=== PATIENT | male | born 1970 | race Caucasian/White ===

== ENCOUNTER 2017-08-21 23:18 | Observation (INO) | payer MEDICAID ==
--- NOTE | 2017-08-21 23:31 | ED PDOC ---
Arrival/HPI - General Chief Complaint: Chest Pain Time Seen by Provider: 08/21/17 23:20 Historian: Patient - History of Present Illness Narrative History of Present Illness (Text): 08/21/17 23:31 Fernanda Mcrae is a 47 year old male, whose past medical history includes CAD with 1 coronary stent, ND, CHF, pacemaker/defibrillator, and asthma, who presents to the Emergency department complaining of left-sided chest pain since earlier today with associated dizziness. Patient states he took Aspirin at home earlier today. Patient also reports wheezing, consistent with usual asthma symptoms. Patient denies any fever, chills, nausea, vomiting, diarrhea, urinary symptoms, back pain, neck pain, headache, dizziness, or any other complaints. Symptom Onset: Gradual Symptom Course: Unchanged Activities at Onset: Light Context: Home Past Medical History - Provider Review Nursing Documentation Reviewed: Yes - Infectious Disease Hx of Infectious Diseases: None - Cardiac Hx Hypertension: Yes Hx Internal Defibrillator: Yes Hx Pacemaker: Yes Other/Comment: stent x1 - Pulmonary Hx Respiratory Disorders: No - Psychiatric Hx Substance Use: No - Surgical History Hx Coronary Stent: Yes - Anesthesia Hx Anesthesia: No Family/Social History - Physician Review Nursing Documentation Reviewed: Yes Family/Social History: Unknown Family HX Smoking Status: Smoker Currrent Status Unknown Hx Alcohol Use: Yes Frequency of alcohol use: Socially Hx Substance Use: No Allergies/Home Meds Allergies/Adverse Reactions: Allergies pantoprazole [From Protonix] Adverse Reaction (Unknown, Verified 08/21/17 23:31) SWELLING Home Medications: Home Meds Medication Instructions Recorded Confirmed Aspirin [Aspirin Chewable] 81 mg PO DAILY 08/21/17 08/21/17 Atorvastatin [Lipitor] 80 mg PO DAILY 08/21/17 08/21/17 Clopidogrel [Plavix] 75 mg PO DAILY 08/21/17 08/21/17 Metoprolol Tartrate [Lopressor] 25 mg PO DAILY 08/21/17 08/21/17 Review of Systems - Physician Review All systems were reviewed & negative as marked: Yes - Review of Systems Constitutional: Normal. absent: Fevers Eyes: Normal ENT: Normal Respiratory: Wheezing Cardiovascular: Chest Pain Gastrointestinal: Normal. absent: Abdominal Pain, Diarrhea, Nausea, Vomiting Genitourinary Male: Normal. absent: Dysuria, Frequency, Hematuria, Urinary Output Changes Musculoskeletal: Normal. absent: Back Pain, Neck Pain Skin: Normal. absent: Rash Neurological: Normal. absent: Headache, Dizziness Endocrine: Normal Hemo/Lymphatic: Normal Psychiatric: Normal Physical Exam Vital Signs Reviewed: Yes Vital Signs Temp Pulse Resp BP Pulse Ox 08/21/17 23:50 99 H 141/71 08/21/17 23:33 98.3 F 105 H 17 141/71 100 Temperature: Afebrile Blood Pressure: Normal Pulse: Regular Respiratory Rate: Normal Appearance: Positive for: Well-Appearing, Non-Toxic, Comfortable Pain Distress: None Mental Status: Positive for: Alert and Oriented X 3 - Systems Exam Head: Present: Atraumatic, Normocephalic Pupils: Present: PERRL Extroacular Muscles: Present: EOMI Conjunctiva: Present: Normal Mouth: Present: Moist Mucous Membranes Neck: Present: Normal Range of Motion Respiratory/Chest: Present: Wheezes. No: Respiratory Distress, Accessory Muscle Use Cardiovascular: Present: Regular Rate and Rhythm, Normal S1, S2. No: Murmurs Abdomen: No: Tenderness, Distention, Peritoneal Signs Back: Present: Normal Inspection Upper Extremity: Present: Normal Inspection. No: Cyanosis, Edema Lower Extremity: Present: Normal Inspection. No: Edema Neurological: Present: GCS=15, CN II-XII Intact, Speech Normal Skin: Present: Warm, Dry, Normal Color. No: Rashes Psychiatric: Present: Alert, Oriented x 3, Normal Insight, Normal Concentration Medical Decision Making ED Course and Treatment: 08/21/17 23:31 Impression: 47 year old male complaining of chest pain, dizziness, and wheezing. Plan: -- EKG -- Chest X-ray -- Labs, cardiac enzymes, BNP -- Aspirin -- Duoneb -- Lopressor -- Nitroglycerin -- Dilaudid -- Reassess and disposition Progress Notes: Reviewed EKG, NSR at 98 bpm. LAHB. Anterolateral infarct, age undetermined. 08/22/17 00:30 Chest X-ray reviewed, shows no acute processes. 08/22/17 01:[address] Meija, who is aware and agrees with plan. Accepts pt in to hospitalist service. Pt will go to Telemetry observation for chest pain. anesthesia resident notified. - Lab Interpretations Lab Results: 08/21/17 23:42 08/21/17 23:42 Lab Results 08/21/17 23:42: WBC 8.6, RBC 4.65, Hgb 11.1 L, Hct 34.5 L, MCV 74.2 L, MCH 23.9 L, MCHC 32.2, RDW 14.6 H, Plt Count 288, MPV 9.4 04 23:42: Sodium 141, Potassium 4.0, Chloride 102, Carbon Dioxide 27, Anion Gap 16, BUN 20, Creatinine 0.9, Est GFR ( Amer) > 60, Est GFR (Non- Af Amer) > 60, Random Glucose 110, Calcium 8.7, Total Bilirubin 0.2, AST 28, ALT 28, Alkaline Phosphatase 73, Lactate Dehydrogenase 410, Total Creatine Kinase 51, Troponin I < 0.01, NT-Pro-B Natriuret Pep 127, Total Protein 7.1, Albumin 4.3, Globulin 2.8, Albumin/Globulin Ratio 1.5 08/21/17 23:42: PT 11.2, INR 0.98, APTT 27.7 - RAD Interpretation Radiology Orders: 08/21/17 23:33 CHEST PORTABLE [RAD] Stat Cut Out And Marking Machine Operator: ED Physician - EKG Interpretation Interpreted by ED Physician: Yes Type: 12 lead EKG - Medication Orders Current Medication Orders: Discontinued Medications Albuterol/Ipratropium (Duoneb 3 Mg/0.5 Mg (3 Ml) Ud) 3 ml IH ONCE STA Stop: 08/21/17 23:40 Last Admin: 08/21/17 23:50 Dose: 3 ml Aspirin (Aspirin) 325 mg PO ONCE STA Stop: 08/21/17 23:41 Last Admin: 08/21/17 23:50 Dose: 325 mg Hydromorphone HCl (Dilaudid) 0.5 mg IVP STAT STA Stop: 08/21/17 23:41 Last Admin: 08/21/17 23:50 Dose: 0.5 mg MAR Pain Assessment Document 08/21/17 23:50 IT (Rec: 08/21/17 23:50 IT [id number]) Pain Reassessment Is this a pain reassessment? No Sleep Is patient sleeping during reassessment? No Presence of Pain Presence of Pain Yes Pain Scale Used Pain Scale Used Numeric IVP Administration Document 08/21/17 23:50 IT (Rec: 08/21/17 23:50 IT [id number]) Charges for Administration # of IVP Administrations 1 Metoprolol Tartrate (Lopressor) 25 mg PO ONCE STA Stop: 08/21/17 23:41 Last Admin: 08/21/17 23:50 Dose: 25 mg MAR Pulse and Blood Pressure Document 08/21/17 23:50 IT (Rec: 08/21/17 23:50 IT [id number]) Pulse Pulse Rate (60-90 beats/min) 99 Blood Pressure Blood Pressure (100/60-150/90 mm Hg) 141/71 Nitroglycerin (Nitro-Bid 2% Oint) 1 ea TOP ONCE STA Stop: 08/21/17 23:41 Last Admin: 08/21/17 23:49 Dose: 1 ea - Scribe Statement The provider has reviewed the documentation as recorded by the Jono Draper Provider Scribe Attestation: All medical record entries made by the Scribe were at my direction and personally dictated by me. I have reviewed the chart and agree that the record accurately reflects my personal performance of the history, physical exam, medical decision making, and the department course for this patient. I have also personally directed, reviewed, and agree with the discharge instructions and disposition. Disposition/Present on Arrival - Present on Arrival Any Indicators Present on Arrival: No History of DVT/PE: No History of Uncontrolled Diabetes: No Urinary Catheter: No History of Decub. Ulcer: No History Surgical Site Infection Following: None - Disposition Have Diagnosis and Disposition been Completed?: Yes Diagnosis: Chest pain, Asthma Disposition: HOSPITALIZED Disposition Time: 01:50 Condition: STABLE Discharge Instructions (ExitCare): Chest Pain (ED) Forms: [employer] (Dutch)
[2017-08-21] MEDS ORDERED: Albuterol-Ipratrop 3 mg / 0.5 (3 ml) UD IH STA (23:39)
[2017-08-21] MEDS ORDERED: Nitroglycerin 2% Ointment Foilpak UD TOP STA (23:40)
[2017-08-21] MEDS ORDERED: HYDROmorphone 0.5 mg/0.5 ml ISec IVP STA (23:40)
[2017-08-22 00:19] LABS: HEMOGLOBIN 11.1 g/dL (14.0-18.0); MEAN CELL VOLUME 74.2 fl (80.0-105.0); MEAN CORPUSCULAR HEMOGLOBIN 23.9 pg (25.0-35.0); MEAN CORPUSCULAR HGB CONC 32.2 g/dl (31.0-37.0); MEAN PLATELET VOLUME 9.4 fl (7.0-11.0); RBC 4.65 10^6/uL (3.5-6.1); RED CELL DISTRIBUTION WIDTH 14.6 % (11.5-14.5); WHITE BLOOD COUNT 8.6 10^3/ul (4.5-11.0)
[2017-08-22 00:27] LABS: INR 0.98 (0.93-1.08); PARTIAL THROMBOPLASTIN TIME 27.7 Seconds (25.1-36.5); PROTHROMBIN TIME 11.2 SECONDS (9.4-12.5)
[2017-08-22 00:29] LABS: ALB/GLOB RATIO 1.5 (1.1-1.8); ALBUMIN 4.3 g/dL (3.0-4.8); ALT/SGPT 28 U/L (7-56); AST/SGOT 28 U/L (17-59); BLOOD UREA NITROGEN 20 mg/dL (7-21); CALCIUM 8.7 mg/dL (8.4-10.5); GFR AFRICAN-AMERICAN > 60; GFR NON-AFRICAN AMERICAN > 60
[2017-08-22 00:41] LABS: B-TYPE NATRIURETIC PEPTIDE 127 pg/mL (0-450); TROPONIN I < 0.01 ng/mL
--- NOTE | 2017-08-22 02:02 | CP.PCM.HP ---
<Mariella Siddiqi - Last Filed: 08/22/17 02:55> History of Present Illness - History of Present Illness History of Present Illness: This patient is a 47 year old male with a PMHx of CAD w/ Stent placement, UT, CHF, pacemaker/Defibrillator, and asthma/COPD who presents complaining of chest pain that started around 6:00PM on Tuesday. The chest pain started as he was rising from a seated to standing position. Patient describes the pain as constant and sharp, rates it a 6/10 in severity, and states it radiates to his left shoulder. He took 2 81mg aspirin at home to relieve the pain which slightly helped. Associated with his chest pain is mild dizziness. Patient also complains of mild SOB but attributes it to his asthma. Patient was admitted to [facility] for chest pain 2 weeks in which he had an ECHO done. He is unsure of what the report read. ROS POSITIVES: Chest pain, SOB, Dizziness NEGATIVES: Headache, Fever, chills, abdominal pain, N/V/D, constipation, urinary symptoms. PMHx: CAD w/ Stent placement, UT, CHF, pacemaker/Defibrillator, and asthma/COPD PSHx: Stent placement. Allergies: Protonix SocialHx: 2-3 cigarettes a day for 2 years (Quit April 2017), Drinks Alcohol occasionally, Denies illicit drug use. Works for [employer] at [employer]: 2 weeks ago at [facility] for Chest Pain FamHx: Mom-Heart Disease Meds: Reviewed PMD: Dr. Amauri Retana Corporate Buyer: Dr. Whitten Present on Admission - Present on Admission Any Indicators Present on Admission: No Review of Systems - Review of Systems All systems: reviewed and no additional remarkable complaints except (As per HPI ) Review of Systems: As per HPI Past Patient History - Infectious Disease Hx of Infectious Diseases: None - Past Social History Smoking Status: Smoker Currrent Status Unknown - CARDIAC Hx Hypertension: Yes Hx Internal Defibrillator: Yes Hx Pacemaker: Yes Other/Comment: stent x1 - PULMONARY Hx Respiratory Disorders: No - PSYCHIATRIC Hx Substance Use: No - SURGICAL HISTORY Hx Coronary Stent: Yes - ANESTHESIA Hx Anesthesia: No Meds Allergies/Adverse Reactions: Allergies Allergy/AdvReac Type Severity Reaction Status Date / Time pantoprazole [From Protonix] AdvReac Unknown SWELLING Verified 08/21/17 23:31 Physical Exam - Constitutional Appears: Non-toxic, No Acute Distress - Head Exam Head Exam: ATRAUMATIC, NORMAL INSPECTION, NORMOCEPHALIC - Eye Exam Eye Exam: EOMI, Normal appearance - ENT Exam ENT Exam: Mucous Membranes Moist - Respiratory Exam Respiratory Exam: Wheezes. absent: Accessory Muscle Use, Clear to Auscultation Bilateral, Rales - Cardiovascular Exam Cardiovascular Exam: RRR, +S1, +S2. absent: JVD - GI/Abdominal Exam GI & Abdominal Exam: Normal Bowel Sounds, Soft. absent: Tenderness - Extremities Exam Extremities exam: Positive for: normal capillary refill. Negative for: pedal edema - Neurological Exam Neurological exam: Alert, Oriented x3 - Psychiatric Exam Psychiatric exam: Normal Affect, Normal Mood - Skin Skin Exam: Dry, Intact, Normal Color, Warm Results - Vital Signs Recent Vital Signs: Last Vital Signs Temp 98.3 F 08/21/17 23:33 Pulse 99 H 08/21/17 23:50 Resp 17 08/21/17 23:33 BP 141/71 08/21/17 23:50 Pulse Ox 100 08/21/17 23:33 - Labs Result Diagrams: 08/21/17 23:42 08/21/17 23:42 Labs: Laboratory Results - last 24 hr 08/21/17 08/21/17 08/21/17 23:42 23:42 23:42 WBC 8.6 RBC 4.65 Hgb 11.1 L Hct 34.5 L MCV 74.2 L MCH 23.9 L MCHC 32.2 RDW 14.6 H Plt Count 288 MPV 9.4 PT 11.2 INR 0.98 APTT 27.7 Sodium 141 Potassium 4.0 Chloride 102 Carbon Dioxide 27 Anion Gap 16 BUN 20 Creatinine 0.9 Est GFR ( Amer) > 60 Est GFR (Non-Af Amer) > 60 Random Glucose 110 Calcium 8.7 Total Bilirubin 0.2 AST 28 ALT 28 Alkaline Phosphatase 73 Lactate Dehydrogenase 410 Total Creatine Kinase 51 Troponin I < 0.01 NT-Pro-B Natriuret Pep 127 Total Protein 7.1 Albumin 4.3 Globulin 2.8 Albumin/Globulin Ratio 1.5 Assessment & Plan - Assessment and Plan (Free Text) Assessment: 47 year old male with a PMHx of CAD w/ Stent placement, UT, CHF, pacemaker/ Defibrillator, and asthma/COPD admitted for evaluation and treatment of chest pain. Plan: Chest Pain R/O ACS. CXR: No Acute Disease EKG: NSR with no acute ST/T wave changes BNP - Within normal limits Trop #1 - NEGATIVE ED: ASA 325, Nitroglycerin, Diluaded 0.5 Serial Troponins Serial EKG's Cardiology Consult Asthma/COPD Exacerbaton Solumedrol 125 in ED DuoNeb in ED PRN Xopenex Solumedrol 40 Q12H Hx of CAD ASA/Plavix Lipitor 80 Hx of CHF Metoprolol 25 mg PO Daily Patient had ECHO 2 weeks ago at [facility]. He is unsure of the results. Proph No indication for GI proph Lovenox Patient seen and discussed with Attending (Dr. Mejia) Mariella Siddiqi, PGY-1 <Adelaide Mejia - Last Filed: 08/22/17 03:55> Results - Vital Signs Recent Vital Signs: Last Vital Signs Temp 98.3 F 08/21/17 23:33 Pulse 99 H 08/21/17 23:50 Resp 17 08/21/17 23:33 BP 141/71 08/21/17 23:50 Pulse Ox 100 08/21/17 23:33 - Labs Result Diagrams: 08/21/17 23:42 08/21/17 23:42 Attending/Attestation - Attestation I have personally seen and examined this patient.: Yes I have fully participated in the care of the patient.: Yes I have reviewed all pertinent clinical information: Yes Notes (Text): 08/22/17 03:53 Patient was seen when he was in bed # 16 in the ER. Medical record was reviewed. Agree with history, physical examination, assessment and plan.
[2017-08-22] MEDS ORDERED: Levalbuterol 0.63 MG/3 ML Inhal Soln UD IH PRN (02:56)
[2017-08-22] MEDS ORDERED: Pantoprazole 40 mg EC Tab PO SCH (06:00)
[2017-08-22 07:01] LABS: EOS # 0.2 (0.0-0.7); EOS % 2.1 % (1.5-5.0); GRAN # 6.82 (1.4-6.5); GRAN % 88.6 % (50.0-68.0); HEMOGLOBIN 11.1 g/dL (14.0-18.0); LYMPH # 0.6 (1.2-3.4); LYMPH % 7.3 % (22.0-35.0); MEAN CELL VOLUME 74.3 fl (80.0-105.0); MEAN CORPUSCULAR HGB CONC 32.3 g/dl (31.0-37.0); MEAN PLATELET VOLUME 9.3 fl (7.0-11.0); MONO # 0.2 (0.1-0.6); RBC 4.63 10^6/uL (3.5-6.1); RED CELL DISTRIBUTION WIDTH 14.8 % (11.5-14.5); WHITE BLOOD COUNT 7.7 10^3/ul (4.5-11.0)
[2017-08-22 07:29] LABS: TROPONIN I 0.02 ng/mL
[2017-08-22 07:34] LABS: ALB/GLOB RATIO 1.4 (1.1-1.8); ALBUMIN 4.1 g/dL (3.0-4.8); ALT/SGPT 22 U/L (7-56); AST/SGOT 27 U/L (17-59); BLOOD UREA NITROGEN 19 mg/dL (7-21); CALCIUM 9.1 mg/dL (8.4-10.5); GFR AFRICAN-AMERICAN > 60; GFR NON-AFRICAN AMERICAN > 60
--- NOTE | 2017-08-22 09:24 | RAD ---
HISTORY: pain COMPARISON: No prior. FINDINGS: LUNGS: No active pulmonary disease. PLEURA: No significant pleural effusion identified, no pneumothorax apparent. CARDIOVASCULAR: Normal. OSSEOUS STRUCTURES: No significant abnormalities. VISUALIZED UPPER ABDOMEN: Normal. OTHER FINDINGS: Single lead pacemaker IMPRESSION: No active disease.
[2017-08-22] MEDS: Enoxaparin 40 mg Syringe SC SCH (10:08)
[2017-08-22] MEDS: MethylPREDNISolone 40 mg Vial IVP SCH ×2 (10:09→22:05)
--- NOTE | 2017-08-22 11:00 | CARD ---
APPROVED REPORT EKG Measurement Heart [id number] CO 178P15 [id number] <Conclusion> Normal sinus rhythm Left anterior fascicular block Anterolateral infarct, age undetermined Abnormal ECG
--- NOTE | 2017-08-22 16:21 | CARD ---
APPROVED REPORT EKG Measurement Heart [id number] NC 158P35 [id number] <Conclusion> Normal sinus rhythm Possible Left atrial enlargement Left anterior fascicular block Anterolateral infarct, age undetermined Abnormal ECG
--- NOTE | 2017-08-22 16:41 | CARD ---
APPROVED REPORT EKG Measurement Heart [id number] 170P35 [id number] <Conclusion> Normal sinus rhythm Left anterior fascicular block Anterolateral infarct, age undetermined Abnormal ECG
--- NOTE | 2017-08-22 22:43 | CON ---
DATE: CARDIOLOGY CONSULTATION REASON FOR CONSULTATION: Chest pain. HISTORY OF PRESENT ILLNESS: The patient is a 47-year-old male who has a history of cardiomyopathy, history of coronary stenting, the last stent was in 2014; history of ICD placement that was placed in 2016. The patient follows by a patient services manager, by the name of Dr. Whitten at [facility] in [facility]. He presents because of chest pain which is tightness, nonradiating. The patient is on daily Plavix and aspirin therapy at home and claims to be compliant with his medication. At this time, the patient denies any chest pain. SOCIAL HISTORY: Patient is a smoker, EtOH abuser. 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 REVIEW OF SYSTEMS: No fever or chills. No vomiting or diarrhea. PHYSICAL EXAMINATION: GENERAL: Patient is a middle-aged male who does not appear to be in any acute distress. VITAL SIGNS: Blood pressure 126/90, heart rate 92, temperature 97.5, respirations 16. HEENT: Normocephalic. CHEST: Bibasilar coarse crepitations. HEART: S1 and S2 regular. ABDOMEN: Soft. EXTREMITIES: Trace leg edema. LABORATORY DATA: Hemoglobin and hematocrit 11.1 and 34.4, white count and platelet count are within normal limit. SMA-7 is within normal limits except for glucose of 137 and creatine of 0.7. Two sets of troponin are 0.01 and 0.02. Chest x-ray revealed cardiomegaly, mild CHF, and an ICD, single chamber lead. ASSESSMENT: 1. Exacerbation of congestive heart failure. 2. Ischemic cardiomyopathy. The most recent echocardiographic study performed in June of last year revealed mildly elevated left ventricle with severe apical thinning and apical akinesis, ejection fraction was estimated at 30% to 35%. 3. History of coronary artery disease status post coronary stent in 2014. RECOMMENDATIONS: Continue current aspirin 81 mg once a day, Lipitor 80 mg once a day, Lopressor 25 mg once a day, Lovenox 20 mg subcutaneously once a day, Plavix 75 mg once a day, Solu-Medrol 40 mg intravenously every 12 hours, Xopenex inhaler, start Aldactone at 25 mg once a day, Cozaar at 25 mg once a day, Lasix 40 mg intravenously twice a day with K-Dur 20 mEq once a day. Eros Butt MD [facility] # [id number]
[2017-08-23 06:22] LABS: GRAN # 13.18 (1.4-6.5); GRAN % 92.7 % (50.0-68.0); HEMOGLOBIN 11.7 g/dL (14.0-18.0); LYMPH # 0.6 (1.2-3.4); LYMPH % 4.3 % (22.0-35.0); MEAN CELL VOLUME 73.4 fl (80.0-105.0); MEAN CORPUSCULAR HEMOGLOBIN 23.9 pg (25.0-35.0); MEAN CORPUSCULAR HGB CONC 32.6 g/dl (31.0-37.0); MEAN PLATELET VOLUME 9.6 fl (7.0-11.0); MONO # 0.4 (0.1-0.6); PLATELET COUNT 292 10^3/uL (120.0-450.0); RBC 4.89 10^6/uL (3.5-6.1); RED CELL DISTRIBUTION WIDTH 14.3 % (11.5-14.5); WHITE BLOOD COUNT 14.2 10^3/ul (4.5-11.0)
[2017-08-23 06:35] VITALS: O2SAT 99
[2017-08-23 06:42] LABS: ALB/GLOB RATIO 1.4 (1.1-1.8); ALBUMIN 4.5 g/dL (3.0-4.8); ALT/SGPT 23 U/L (7-56); AST/SGOT 34 U/L (17-59); BLOOD UREA NITROGEN 21 mg/dL (7-21); CALCIUM 9.7 mg/dL (8.4-10.5); GFR AFRICAN-AMERICAN > 60; GFR NON-AFRICAN AMERICAN > 60
[2017-08-23 09:04] LABS: LYMPHOCYTE 2 % (22.0-35.0); MONOCYTE 3 % (1.0-6.0); NEUTROPHIL 95 % (50.0-70.0)
[2017-08-23] MEDS ORDERED: Potassium Chloride 20 mEq ER Tab PO SCH (10:00)
[2017-08-23] MEDS: Enoxaparin 40 mg Syringe SC SCH (10:11)
[2017-08-23] MEDS: MethylPREDNISolone 40 mg Vial IVP SCH (10:12)
--- NOTE | 2017-08-23 11:12 | CP.PCM.DIS ---
<Titi Rowley - Last Filed: 08/23/17 15:31> Provider - Provider Date of Admission: 08/22/17 01:50 Attending physician: Valentin Rockwell MD Time Spent in preparation of Discharge (in minutes): 45 Diagnosis - Discharge Diagnosis (1) Chest pain Status: Resolved Priority: Medium (2) Myocardial infarct Status: Resolved Priority: Medium (3) Congestive heart failure Status: Chronic Priority: Medium (4) History of implantable cardioverter-defibrillator (ICD) placement Status: Chronic Priority: Medium (5) Asthma Status: Chronic Priority: Medium Hospital Course - Lab Results Lab Results: Most Recent Lab Values WBC 14.2 10^3/ul (4.5-11.0) H D 08/23/17 05:40 RBC 4.89 10^6/uL (3.5-6.1) 08/23/17 05:40 Hgb 11.7 g/dL (14.0-18.0) L 08/23/17 05:40 Hct 35.9 % (42.0-52.0) L 08/23/17 05:40 MCV 73.4 fl (80.0-105.0) L 08/23/17 05:40 MCH 23.9 pg (25.0-35.0) L 08/23/17 05:40 MCHC 32.6 g/dl (31.0-37.0) 08/23/17 05:40 RDW 14.3 % (11.5-14.5) 08/23/17 05:40 Plt Count 292 10^3/uL (120.0-450.0) 08/23/17 05:40 MPV 9.6 fl (7.0-11.0) 08/23/17 05:40 Gran % 92.7 % (50.0-68.0) H 08/23/17 05:40 Lymph % (Auto) 4.3 % (22.0-35.0) L 08/23/17 05:40 [place] % (Auto) 3.0 % (1.0-6.0) 08/23/17 05:40 Eos % (Auto) 0.0 % (1.5-5.0) L 08/23/17 05:40 Baso % (Auto) 0.0 % (0.0-3.0) 08/23/17 05:40 Gran # 13.18 (1.4-6.5) H 08/23/17 05:40 Lymph # (Auto) 0.6 (1.2-3.4) L 08/23/17 05:40 [place] # (Auto) 0.4 (0.1-0.6) 08/23/17 05:40 Eos # (Auto) 0.0 (0.0-0.7) 08/23/17 05:40 Baso # (Auto) 0.00 K/mm3 (0.0-2.0) 08/23/17 05:40 Neutrophils % (Manual) 95 % (50.0-70.0) H 08/23/17 05:40 Lymphocytes % (Manual) 2 % (22.0-35.0) L 08/23/17 05:40 Monocytes % (Manual) 3 % (1.0-6.0) 08/23/17 05:40 PT 11.2 SECONDS (9.4-12.5) 08/21/17 23:42 INR 0.98 (0.93-1.08) 08/21/17 23:42 APTT 27.7 Seconds (25.1-36.5) 08/21/17 23:42 Sodium 141 mmol/L (132-148) 08/23/17 05:40 Potassium 3.7 mmol/L (3.6-5.0) 08/23/17 05:40 Chloride 99 mmol/L (98-107) 08/23/17 05:40 Carbon Dioxide 26 mmol/L (21-33) 08/23/17 05:40 Anion Gap 19 (10-20) 08/23/17 05:40 BUN 21 mg/dL (7-21) 08/23/17 05:40 Creatinine 0.7 mg/dl (0.8-1.5) L 08/23/17 05:40 Est GFR ( Amer) > 60 08/23/17 05:40 Est GFR (Non-Af Amer) > 60 08/23/17 05:40 Random Glucose 150 mg/dL (70-110) H 08/23/17 05:40 Calcium 9.7 mg/dL (8.4-10.5) 08/23/17 05:40 Total Bilirubin 0.4 mg/dL (0.2-1.3) 08/23/17 05:40 AST 34 U/L (17-59) 08/23/17 05:40 ALT 23 U/L (7-56) 08/23/17 05:40 Alkaline Phosphatase 74 U/L (38-126) 08/23/17 05:40 Lactate Dehydrogenase 410 U/L (333-699) 08/21/17 23:42 Total Creatine Kinase 51 U/L (35-230) 08/21/17 23:42 Troponin I 0.02 ng/mL 08/22/17 11:13 NT-Pro-B Natriuret Pep 127 pg/mL (0-450) 08/21/17 23:42 Total Protein 7.7 g/dL (5.8-8.3) 08/23/17 05:40 Albumin 4.5 g/dL (3.0-4.8) 08/23/17 05:40 Globulin 3.2 gm/dL 08/23/17 05:40 Albumin/Globulin Ratio 1.4 (1.1-1.8) 08/23/17 05:40 - Hospital Course Hospital Course: Patient is a 47 year old male with a PMHx of CAD w/ Stent placement, SD, CHF, pacemaker/Defibrillator, and asthma/COPD who was admitted for evaluation and treatment of chest pain. With the use of physical examinations, lab work, and imaging the patient was diagnosed with and treated for chest pain (acs was ruled out) musculoskeletal in nature along with the patients chronic medical conditions. During their hospital stay the patient was seen by cardiology and their recommendations were both appreciated and utilized in the care for this patient. Cardiology started the patient on lasix and aldactone. During their hospital stay the patient underwent multiple EKGs and echocardiogram which were reviewed, appreciated, and utilized in the management of the patients clinical course. Patient was treated with aspirin, plavix, lovenox, antihypertensive medications amongst other empiric/therapeutic medications. At this time the patient is medically stable for discharge. Patient understands and appreciates discharge plan. Patient instructed to follow up with primary care physicians and referrals within three to five days from discharge. Furthermore, the patient is instructed to take medications as prescribed and to return to emergency room for evaluation of intractable headache, fever, chills, dizziness, chest pain, shortness of breath, abdominal pain, nausea, vomiting, diarrhea, constipation, and urinary symptoms. This is a brief summary of the patients hospital course. Please see patient chart for full details. Discharge Exam - Head Exam Head Exam: ATRAUMATIC, NORMAL INSPECTION, NORMOCEPHALIC - Additional Findings Additional findings: - Constitutional Appears: Non-toxic, No Acute Distress - Head Exam Head Exam: ATRAUMATIC, NORMAL INSPECTION, NORMOCEPHALIC - Eye Exam Eye Exam: EOMI, Normal appearance - ENT Exam ENT Exam: Mucous Membranes Moist - Respiratory Exam Respiratory Exam: CTA bilaterally. absent: Accessory Muscle Use, Clear to Auscultation Bilateral, Rales - Cardiovascular Exam Cardiovascular Exam: RRR, +S1, +S2. lateral chest wall tender to touch, absent : JVD - GI/Abdominal Exam GI & Abdominal Exam: Normal Bowel Sounds, Soft. absent: Tenderness - Extremities Exam Extremities exam: Positive for: normal capillary refill. Negative for: pedal edema - Neurological Exam Neurological exam: Alert, Oriented x3 - Psychiatric Exam Psychiatric exam: Normal Affect, Normal Mood - Skin Skin Exam: Dry, Intact, Normal Color, Warm Discharge Plan - Discharge Medications Prescriptions: Furosemide [Lasix] 40 mg PO BID #60 tab Losartan [Cozaar] 25 mg PO DAILY 14 Days tab Spironolactone [Aldactone] 25 mg PO DAILY #30 tab - Follow Up Plan Condition: STABLE Disposition: HOME/ ROUTINE Patient education suggested?: Yes Instructions: Heart Failure, Adult, Heart Failure, Adult (DC), Chest Pain (DC) Additional Instructions: Patient Instructions: Take medications as prescribed. Follow up with PMD and referrals within three to five days from discharge. Return to the emergency room for evaluation of intractable headache, fever, chills, dizziness, chest pain, shortness of breath, abdominal pain, nausea, vomiting, diarrhea, constipation, and urinary symptoms. FOLLOW UP WITH YOUR [employer]CH [employer] SUPERVISOR AT [facility] WITHIN 1 WEEK REGARDING WHETHER OR NOT TO BE ON ANTICOAGULATION. Referrals: Eros Butt MD [Staff Provider] - <Valentin Rockwell - Last Filed: 08/23/17 17:29> Provider - Provider Date of Admission: 08/22/17 01:50 Attending physician: Valentin Rockwell MD Hospital Course - Lab Results Lab Results: Most Recent Lab Values WBC 14.2 10^3/ul (4.5-11.0) H D 04/24/18 05:40 RBC 4.89 10^6/uL (3.5-6.1) 08/23/17 05:40 Hgb 11.7 g/dL (14.0-18.0) L 08/23/17 05:40 Hct 35.9 % (42.0-52.0) L 08/23/17 05:40 MCV 73.4 fl (80.0-105.0) L 08/23/17 05:40 MCH 23.9 pg (25.0-35.0) L 08/23/17 05:40 MCHC 32.6 g/dl (31.0-37.0) 08/23/17 05:40 RDW 14.3 % (11.5-14.5) 08/23/17 05:40 Plt Count 292 10^3/uL (120.0-450.0) 08/23/17 05:40 MPV 9.6 fl (7.0-11.0) 08/23/17 05:40 Gran % 92.7 % (50.0-68.0) H 08/23/17 05:40 Lymph % (Auto) 4.3 % (22.0-35.0) L 08/23/17 05:40 [place] % (Auto) 3.0 % (1.0-6.0) 08/23/17 05:40 Eos % (Auto) 0.0 % (1.5-5.0) L 08/23/17 05:40 Baso % (Auto) 0.0 % (0.0-3.0) 08/23/17 05:40 Gran # 13.18 (1.4-6.5) H 08/23/17 05:40 Lymph # (Auto) 0.6 (1.2-3.4) L 08/23/17 05:40 [place] # (Auto) 0.4 (0.1-0.6) 08/23/17 05:40 Eos # (Auto) 0.0 (0.0-0.7) 08/23/17 05:40 Baso # (Auto) 0.00 K/mm3 (0.0-2.0) 08/23/17 05:40 Neutrophils % (Manual) 95 % (50.0-70.0) H 08/23/17 05:40 Lymphocytes % (Manual) 2 % (22.0-35.0) L 08/23/17 05:40 Monocytes % (Manual) 3 % (1.0-6.0) 08/23/17 05:40 PT 11.2 SECONDS (9.4-12.5) 08/21/17 23:42 INR 0.98 (0.93-1.08) 08/21/17 23:42 APTT 27.7 Seconds (25.1-36.5) 08/21/17 23:42 Sodium 141 mmol/L (132-148) 08/23/17 05:40 Potassium 3.7 mmol/L (3.6-5.0) 08/23/17 05:40 Chloride 99 mmol/L (98-107) 08/23/17 05:40 Carbon Dioxide 26 mmol/L (21-33) 08/23/17 05:40 Anion Gap 19 (10-20) 08/23/17 05:40 BUN 21 mg/dL (7-21) 08/23/17 05:40 Creatinine 0.7 mg/dl (0.8-1.5) L 08/23/17 05:40 Est GFR ( Amer) > 60 08/23/17 05:40 Est GFR (Non-Af Amer) > 60 08/23/17 05:40 Random Glucose 150 mg/dL (70-110) H 08/23/17 05:40 Calcium 9.7 mg/dL (8.4-10.5) 08/23/17 05:40 Total Bilirubin 0.4 mg/dL (0.2-1.3) 08/23/17 05:40 AST 34 U/L (17-59) 08/23/17 05:40 ALT 23 U/L (7-56) 08/23/17 05:40 Alkaline Phosphatase 74 U/L (38-126) 08/23/17 05:40 Lactate Dehydrogenase 410 U/L (333-699) 08/21/17 23:42 Total Creatine Kinase 51 U/L (35-230) 08/21/17 23:42 Troponin I 0.02 ng/mL 08/22/17 11:13 NT-Pro-B Natriuret Pep 127 pg/mL (0-450) 08/21/17 23:42 Total Protein 7.7 g/dL (5.8-8.3) 08/23/17 05:40 Albumin 4.5 g/dL (3.0-4.8) 08/23/17 05:40 Globulin 3.2 gm/dL 08/23/17 05:40 Albumin/Globulin Ratio 1.4 (1.1-1.8) 08/23/17 05:40 Attending/Attestation - Attestation I have personally seen and examined this patient.: Yes I have fully participated in the care of the patient.: Yes I have reviewed all pertinent clinical information, including history, physical exam and plan: Yes
[2017-08-23 12:27] VITALS: BP 116/78; PULSE 73; RESP 20; TEMP 98.3
--- NOTE | 2017-08-23 14:55 | PN ---
DATE: SUBJECTIVE: The patient denies any chest pain. His shortness of breath has improved. PHYSICAL EXAMINATION VITAL SIGNS: Blood pressure 116/78, heart rate 73, temperature 98.3, respiration 20. HEENT: Normocephalic. CHEST: Minimal basal rhonchi. HEART: S1 and S2 regular. EXTREMITIES: No edema. LABORATORY DATA: Today's SMA-7 is within normal limit except for glucose of 150 and creatinine 0.7. Today's white count is 14.2, hemoglobin and hematocrit 11.7 and 35.9, platelet count 292,000. ASSESSMENT: 1. Ischemic cardiomyopathy. 2. History of coronary artery disease, status post coronary artery stenting in 2014. 3. Ethyl alcohol abuse. RECOMMENDATIONS: Continue current Aldactone, aspirin, Cozaar, K-Dur, Lasix, Lipitor, Lopressor, Plavix, and subcutaneous Lovenox, Coumadin therapy is indicated; however, it has to be cleared by the patient's outpatient services director, Dr. Whitten at [facility] because of compliance issues and EtOH abuse. Eros Butt MD
--- NOTE | 2017-08-24 19:19 | CARD ---
APPROVED REPORT EXAM: Two-dimensional and M-mode echocardiogram with Doppler and color Doppler. INDICATION 2D DIMENSIONS Left Atrium (2D)2.5 (1.6-4.0cm)IVSd1.1 (0.7-1.1cm) LVDd5.4 (3.9-5.9cm)PWd1.1 (0.7-1.1cm) LVDs4.5 (2.5-4.0cm)FS (%) 16.5 % LVEF (%)34.1 (>50%) M-Mode DIMENSIONS Aortic Root3.10 (2.2-3.7cm)Aortic Cusp Exc.1.50 (1.5-2.0cm) Aortic Valve AoV Peak Atxmqdgn419.0cm/Zev Peak GR.8mmHg Mitral Valve MV E Yqowqlhp12.5cm/sMV A Utukfprb41.9cm/sE/A ratio0.9 TDI Lateral E' Peak V10.30cm/sMedial E' Peak V6.53cm/sE/Lateral E'7.4 E/Medial E'11.7 Tricuspid Valve TR Peak Mhdoifrb039sv/sRAP XAIBZBIS76wuHvXU Peak Gr.18mmHg [id number] LEFT VENTRICLE The Left Ventricle is borderline dilated. There is normal left ventricular wall thickness. The systolic function is moderately to severely impaired.EF-20-25% Regional wall motion abnormalities noted. There is severe hypokinesis in the apical anterior wall. Transmitral Doppler flow pattern is Grade III-reversible restrictive diastolic dysfunction. No left ventricle thrombus noted on this study. There is no ventricular septal defect visualized. There is no left ventricular aneurysm. There is no mass noted in the left ventricle. RIGHT VENTRICLE The right ventricle is normal size. There is normal right ventricular wall thickness. The right ventricular systolic function is normal. ATRIA The left atrium is mildly dilated. The right atrium size is normal. The interatrial septum is intact with no evidence for an atrial septal defect. AORTIC VALVE The aortic valve is thickened but opens well. There is trace aortic regurgitation. There is no aortic valvular stenosis. There is no aortic valvular vegetation. MITRAL VALVE The mitral valve is thickened but opens well. Mitral regurgitation is trace. There is no mitral valve stenosis. There is no evidence of mitral valve prolapse. TRICUSPID VALVE The tricuspid valve leaflets are thickened , but open well. There is trace to mild tricuspid regurgitation.RVSP-28 mmof g. There is no tricuspid valve stenosis. There is no tricuspid valve prolapse or vegetation. PULMONIC VALVE The pulmonary valve is normal in structure. There is trace pulmonic valvular regurgitation. There is no pulmonic valvular stenosis. GREAT VESSELS The aortic root is normal in size. The ascending aorta is normal in size. The pulmonary artery is normal. The IVC is normal in size and collapses >50% with inspiration. PERICARDIAL EFFUSION There is no pleural effusion. There is no pericardial effusion. <Conclusion> The Left Ventricle is borderline dilated. There is normal left ventricular wall thickness. The systolic function is moderately to severely impaired.EF-20-25% There is trace aortic regurgitation. Mitral regurgitation is trace. There is trace to mild tricuspid regurgitation.RVSP-28 mmof g. There is no pulmonic valvular stenosis. The IVC is normal in size and collapses >50% with inspiration. There is no pericardial effusion. No vegetation or thrombus noted.
== END 2017-08-23 16:20 | disposition home or self-care (01) ==
LOC: ED 23:18 → ERH 08-22 01:50 → MERGE 08-22 01:50 → ERH 08-22 14:14 → 2RNO 08-22 15:13
PROVIDERS: ADMIT Internal Medicine; ATTEND Hospitalist
DX: R07.89 Other chest pain (principal); I11.0 Hypertensive heart disease with heart failure; I50.9 Heart failure, unspecified; I25.5 Ischemic cardiomyopathy; I25.10 Atherosclerotic heart disease of native coronary artery without angina pectoris; F10.10 Alcohol abuse, uncomplicated; F17.200 Nicotine dependence, unspecified, uncomplicated; J44.9 Chronic obstructive pulmonary disease, unspecified; Z79.02 Long term (current) use of antithrombotics/antiplatelets; Z79.82 Long term (current) use of aspirin; Z95.0 Presence of cardiac pacemaker; Z95.5 Presence of coronary angioplasty implant and graft; Z95.810 Presence of automatic (implantable) cardiac defibrillator; Z88.8 Allergy status to other drugs, medicaments and biological substances; I25.2 Old myocardial infarction
CPT/HCPCS: 36415; 71045; 80053; 82550; 83615; 83880; 84484; 85025; 85027; 85610; 85730; 93005; 93306; 96372; 96374; 96375; 96376; 99285; G0378; J1170; J1650; J1940; J2920; J2930

== ENCOUNTER 2017-08-24 03:22 | Observation (INO) | payer MEDICAID ==
[2017-08-24 03:26] VITALS: BMI 24.0
--- NOTE | 2017-08-24 03:49 | ED PDOC ---
Arrival/HPI <Sameer Oreilly - Last Filed: 08/24/17 08:58> - General Historian: Patient - History of Present Illness Time/Duration: 24 hours Symptom Onset: Gradual Symptom Course: Unchanged Activities at Onset: Light Context: Home <Eliud Jesus - Last Filed: 08/24/17 19:19> - General Chief Complaint: Chest Pain Time Seen by Provider: 08/24/17 03:28 - History of Present Illness Narrative History of Present Illness (Text): 08/24/17 03:48 Fernanda Mcrae is a 47 year old male, whose past medical history includes CAD with 1 coronary stent, [place], CHF, pacemaker/defibrillator, and asthma, who presents to the Emergency department complaining of chest pain since earlier today with associated dizziness. Patient was recently admitted to the hospital for similar complaints, seen by cardiology, and discharged from the hospital yesterday. Patient states after returning home yesterday, symptoms returned. Patient also reports wheezing/shortness of breath. Patient denies any fever, chills, nausea, vomiting, diarrhea, urinary symptoms, back pain, neck pain, headache, dizziness, or any other complaints. (Eliud Jesus) Past Medical History - Provider Review Nursing Documentation Reviewed: Yes - Infectious Disease Hx of Infectious Diseases: None - Cardiac Hx Cardiac Disorders: Yes Hx Angina: Yes Other/Comment: defibrilater - Pulmonary Hx Respiratory Disorders: No - Neurological Hx Neurological Disorder: No - HEENT Hx HEENT Disorder: No - Renal Hx Renal Disorder: No - Endocrine/Metabolic Hx Endocrine Disorders: No - Hematological/Oncological Hx Blood Disorders: No Hx AIDS: No - Integumentary Hx Dermatological Disorder: No - Musculoskeletal/Rheumatological Hx Musculoskeletal Disorders: No Hx Falls: No - Gastrointestinal Hx Gastrointestinal Disorders: No Hx Vomiting: No - Genitourinary/Gynecological Hx Genitourinary Disorders: No - Psychiatric Hx Psychophysiologic Disorder: No Hx Substance Use: No - Surgical History Other/Comment: Left Lung Biopsy, Cardiac Stent x1 - Anesthesia Hx Anesthesia: Yes Hx Anesthesia Reactions: No Hx Malignant Hyperthermia: No <Eliud Jesus - Last Filed: 08/24/17 19:19> Family/Social History - Physician Review Nursing Documentation Reviewed: Yes Family/Social History: Unknown Family HX Smoking Status: Former Smoker Hx Alcohol Use: No Hx Substance Use: No <Eliud Jesus - Last Filed: 08/24/17 19:19> Allergies/Home Meds <Sameer Oreilly - Last Filed: 08/24/17 08:58> <Eliud Jesus - Last Filed: 08/24/17 19:19> Allergies/Adverse Reactions: Allergies pantoprazole sodium [From Protonix] Allergy (Verified 07/19/16 21:37) RASH pantoprazole [From Protonix] Adverse Reaction (Unknown, Verified 08/21/17 23:31) SWELLING Home Medications: Home Meds Medication Instructions Recorded Confirmed Aspirin [Aspirin Chewable] 81 mg PO DAILY 08/21/17 08/24/17 Atorvastatin [Lipitor] 80 mg PO DAILY 08/21/17 08/24/17 Clopidogrel [Plavix] 75 mg PO DAILY 08/21/17 08/24/17 Metoprolol Tartrate [Lopressor] 25 mg PO DAILY 08/21/17 08/24/17 Review of Systems - Physician Review All systems were reviewed & negative as marked: Yes - Review of Systems Constitutional: Normal. absent: Fevers Eyes: Normal ENT: Normal Respiratory: SOB, Wheezing Cardiovascular: Chest Pain Gastrointestinal: Normal. absent: Abdominal Pain, Diarrhea, Nausea, Vomiting Genitourinary Male: Normal. absent: Dysuria, Frequency, Hematuria Musculoskeletal: Normal. absent: Back Pain, Neck Pain Skin: Normal. absent: Rash Neurological: Dizziness. absent: Headache Endocrine: Normal Hemo/Lymphatic: Normal Psychiatric: Normal <Eliud Jesus - Last Filed: 08/24/17 19:19> Physical Exam Vital Signs Reviewed: Yes Temperature: Afebrile Blood Pressure: Normal Pulse: Regular Respiratory Rate: Normal Appearance: Positive for: Well-Appearing, Non-Toxic, Comfortable Pain Distress: None Mental Status: Positive for: Alert and Oriented X 3 - Systems Exam Head: Present: Atraumatic, Normocephalic Pupils: Present: PERRL Extroacular Muscles: Present: EOMI Conjunctiva: Present: Normal Mouth: Present: Moist Mucous Membranes Neck: Present: Normal Range of Motion Respiratory/Chest: Present: Clear to Auscultation, Good Air Exchange. No: Respiratory Distress, Accessory Muscle Use Cardiovascular: Present: Regular Rate and Rhythm, Normal S1, S2. No: Murmurs Abdomen: No: Tenderness, Distention, Peritoneal Signs Back: Present: Normal Inspection Upper Extremity: Present: Normal Inspection. No: Cyanosis, Edema Lower Extremity: Present: Normal Inspection. No: Edema Neurological: Present: GCS=15, CN II-XII Intact, Speech Normal Skin: Present: Warm, Dry, Normal Color. No: Rashes Psychiatric: Present: Alert, Oriented x 3, Normal Insight, Normal Concentration <Eliud Jesus - Last Filed: 08/24/17 19:19> Vital Signs Temp Pulse Resp BP Pulse Ox 08/24/17 10:39 98.6 F 86 16 132/78 98 08/24/17 06:44 70 12 118/69 99 08/24/17 05:20 74 12 115/69 98 08/24/17 03:44 98.4 F 94 H 16 123/81 96 Medical Decision Making <Sameer Oreilly - Last Filed: 08/24/17 08:58> - Lab Interpretations I have reviewed the lab results: Yes - RAD Interpretation Chief Deputy Sheriff: ED Physician - EKG Interpretation Interpreted by ED Physician: Yes Type: 12 lead EKG <Eliud Jesus - Last Filed: 08/24/17 19:19> ED Course and Treatment: 08/24/17 03:48 Impression: 47 year old male c/ chest pain and shortness of breath. Plan: -- EKG -- Chest X-ray -- Labs, BNP, alcohol level, cardi ancumes -- Reassess and disposition Prior Visits: Notes and results from previous visits were reviewed. Progress Notes: Reviewed EKG, NSR at 93 bpm. LAFB. Anterolateral infarct, age undetermined. 08/24/17 04:38 Chest X-ray reviewed, shows mild cardiomegaly. dr bragg will discuss with hospitalist 08/24/17 19:18 (Eliud Jesus) - Lab Interpretations Lab Results: 08/24/17 03:50 08/24/17 03:50 Lab Results 08/24/17 03:50: Alcohol, Quantitative < 10 08/24/17 03:50: Sodium 140, Potassium 3.9, Chloride 101, Carbon Dioxide 26, Anion Gap 17, BUN 33 H, Creatinine 0.8, Est GFR ( Amer) > 60, Est GFR ( Non-Af Amer) > 60, Random Glucose 103, Calcium 8.8, Magnesium 2.0, Total Bilirubin 0.3, AST 26, ALT 21, Alkaline Phosphatase 63, Lactate Dehydrogenase 530, Total Creatine Kinase 49, Troponin I < 0.01 D, NT-Pro-B Natriuret Pep 133 , Total Protein 7.0, Albumin 4.1, Globulin 2.8, Albumin/Globulin Ratio 1.4 08/24/17 03:50: Urine Color Light yellow, Urine Appearance Clear, Urine pH 6.0, Ur Specific [place] 1.015, Urine Protein Negative, Urine Glucose (UA) Negative, Urine Ketones Negative, Urine Blood Negative, Urine Nitrate Negative, Urine Bilirubin Negative, Urine Urobilinogen 0.2, Ur Leukocyte Esterase Negative 08/24/17 03:50: PT 10.8, INR 0.95, APTT 25.9 08/24/17 03:50: WBC 16.6 H, RBC 4.60, Hgb 11.1 L, Hct 34.0 L, MCV 73.9 L, MCH 24.1 L, MCHC 32.6, RDW 14.8 H, Plt Count 287, MPV 9.6, Gran % 80.7 H, Lymph % ( Auto) 9.8 L, [place] % (Auto) 9.4 H, Eos % (Auto) 0.1 L, Baso % (Auto) 0.0, Gran # 13.37 H, Lymph # (Auto) 1.6, [place] # (Auto) 1.6 H, Eos # (Auto) 0.0, Baso # (Auto ) 0.00 - RAD Interpretation Radiology Orders: 08/24/17 03:40 CHEST PORTABLE [RAD] Stat - Medication Orders Current Medication Orders: Albuterol/Ipratropium (Duoneb 3 Mg/0.5 Mg (3 Ml) Ud) 3 ml IH [id number] PRN PRN Reason: Shortness of Breath Aspirin (Aspirin Chewable) 81 mg PO DAILY [facility] Last Admin: 08/24/17 15:00 Dose: 81 mg Atorvastatin Calcium (Lipitor) 80 mg PO DAILY [facility] Last Admin: 08/24/17 15:01 Dose: 80 mg Losartan Potassium (Cozaar) 25 mg PO DAILY [facility] Last Admin: 08/24/17 15:01 Dose: 25 mg MAR Pulse and Blood Pressure Document 08/24/17 15:01 KA (Rec: 08/24/17 15:02 [facility] [id number]) Pulse Pulse Rate (60-90) 83 Blood Pressure Blood Pressure (100/60-150/90) 110/63 Metoprolol Tartrate (Lopressor) 25 mg PO DAILY [facility] Last Admin: 08/24/17 15:01 Dose: 25 mg MAR Pulse and Blood Pressure Document 08/24/17 15:01 ILAN (Rec: 08/24/17 15:01 ILAN [id number]) Pulse Pulse Rate (60-90) 83 Blood Pressure Blood Pressure (100/60-150/90) 110/63 Discontinued Medications Albuterol/Ipratropium (Duoneb 3 Mg/0.5 Mg (3 Ml) Ud) 3 ml IH STAT STA Stop: 08/24/17 03:51 Last Admin: 08/24/17 04:03 Dose: 3 ml Albuterol/Ipratropium (Duoneb 3 Mg/0.5 Mg (3 Ml) Ud) 3 ml IH STAT STA Stop: 08/24/17 04:11 Last Admin: 08/24/17 04:42 Dose: 3 ml <Sameer Oreilly - Last Filed: 08/24/17 08:58> - Scribe Statement The provider has reviewed the documentation as recorded by the Scribe <Eliud Jesus - Last Filed: 08/24/17 19:19> - Scribe Statement Desi Draper Provider Scribe Attestation: All medical record entries made by the Scribe were at my direction and personally dictated by me. I have reviewed the chart and agree that the record accurately reflects my personal performance of the history, physical exam, medical decision making, and the department course for this patient. I have also personally directed, reviewed, and agree with the discharge instructions and disposition. (Eliud Jesus) Disposition/Present on Arrival - Disposition Have Diagnosis and Disposition been Completed?: Yes Disposition Time: 08:58 Patient Plan: Admission <Sameer Oreilly - Last Filed: 08/24/17 08:58> - Present on Arrival Any Indicators Present on Arrival: No History of DVT/PE: Yes History of Uncontrolled Diabetes: No Urinary Catheter: No History of Decub. Ulcer: No History Surgical Site Infection Following: None - Disposition Have Diagnosis and Disposition been Completed?: Yes <Eliud Jesus - Last Filed: 08/24/17 19:19> - Disposition Diagnosis: Chest pain Disposition: HOSPITALIZED Patient Problems: Current Active Problems Problem Status Onset Chest pain Acute Condition: GOOD
[2017-08-24] MEDS ORDERED: Albuterol-Ipratrop 3 mg / 0.5 (3 ml) UD IH STA ×2 (03:50→04:10)
[2017-08-24 04:21] LABS: URINE BILIRUBIN NEGATIVE (NEGATIVE); URINE BLOOD NEGATIVE (NEGATIVE); URINE GLUCOSE (UA) NEGATIVE (NEGATIVE); URINE LEUKOCYTE ESTERASE NEGATIVE Leu/uL (NEGATIVE); URINE PROTEIN NEGATIVE mg/dL (<30 mg/dL); URINE UROBILINOGEN 0.2 E.U./dL (<1 E.U./dL)
[2017-08-24 04:25] LABS: EOS % 0.1 % (1.5-5.0); GRAN # 13.37 (1.4-6.5); GRAN % 80.7 % (50.0-68.0); HEMOGLOBIN 11.1 g/dL (14.0-18.0); LYMPH # 1.6 (1.2-3.4); LYMPH % 9.8 % (22.0-35.0); MEAN CELL VOLUME 73.9 fl (80.0-105.0); MEAN CORPUSCULAR HEMOGLOBIN 24.1 pg (25.0-35.0); MEAN CORPUSCULAR HGB CONC 32.6 g/dl (31.0-37.0); MEAN PLATELET VOLUME 9.6 fl (7.0-11.0); MONO # 1.6 (0.1-0.6); MONO % 9.4 % (1.0-6.0); RBC 4.6 10^6/uL (3.5-6.1); RED CELL DISTRIBUTION WIDTH 14.8 % (11.5-14.5); WHITE BLOOD COUNT 16.6 10^3/ul (4.5-11.0)
[2017-08-24 04:34] LABS: URINE APPEARANCE CLEAR (CLEAR); URINE COLOR LIGHT YELLOW (YELLOW)
[2017-08-24 04:40] LABS: ALB/GLOB RATIO 1.4 (1.1-1.8); ALBUMIN 4.1 g/dL (3.0-4.8); ALT/SGPT 21 U/L (7-56); AST/SGOT 26 U/L (17-59); BLOOD UREA NITROGEN 33 mg/dL (7-21); CALCIUM 8.8 mg/dL (8.4-10.5); GFR AFRICAN-AMERICAN > 60; GFR NON-AFRICAN AMERICAN > 60
[2017-08-24 04:45] LABS: B-TYPE NATRIURETIC PEPTIDE 133 pg/mL (0-450); TROPONIN I < 0.01 ng/mL
[2017-08-24 05:00] LABS: INR 0.95 (0.93-1.08); PARTIAL THROMBOPLASTIN TIME 25.9 Seconds (25.1-36.5); PROTHROMBIN TIME 10.8 SECONDS (9.4-12.5)
--- NOTE | 2017-08-24 09:17 | RAD ---
HISTORY: cp COMPARISON: 08/22/2017 FINDINGS: LUNGS: No active pulmonary disease. PLEURA: No significant pleural effusion identified, no pneumothorax apparent. CARDIOVASCULAR: There is decreased vascular congestion. The heart is normal in size OSSEOUS STRUCTURES: No significant abnormalities. VISUALIZED UPPER ABDOMEN: Normal. OTHER FINDINGS: Single lead pacemaker IMPRESSION: No active disease.
--- NOTE | 2017-08-24 10:27 | CP.PCM.HP ---
Addendum entered and electronically signed by Titi Rowley DO 08/24/17 14:22: Correction: Patient case discussed with and plan approved by attending physician, Dr. Rockwell. Original Note: <Titi Rowley - Last Filed: 08/24/17 13:54> History of Present Illness - History of Present Illness History of Present Illness: Subjective: CC: dizziness and fall HPI: Patient is a 47 year old male with a PMHx of CAD w/ Stent placement, PA, CHF, pacemaker/Defibrillator, and asthma/COPD who presents to the ED for evaluation and treatment of dizziness which is chronic in nature, however was exacerbating yesterday evening. Denies specific provoking event. Patient states he was sleeping and rolled off the bed onto his right shoulder. Denies head trauma and loss of consciousness. States room was spinning and would subside upon closing his eyes. Admits to taking aldactone yesterday afternoon. Tolerated diet thereafter. Also states dizziness occurs when going from supine to upright position and is associated with shortness of breath. Denies fever, chills, chest pain, abdominal pain, nausea, vomiting, diarrhea, constipation, and urinary symptoms. 12-point review of systems negative except as indicated in the HPI PMHx: CAD w/ Stent placement, PA, CHF, pacemaker/Defibrillator, and asthma/COPD PSHx: Stent placement. Allergies: Protonix SocialHx: 2-3 cigarettes a day for 2 years (Quit April 2017), Drinks Alcohol occasionally, Denies illicit drug use. Works for [employer] at [employer] [facility]: 2 weeks ago at [facility] FamHx: Mom-Heart Disease Meds: Reviewed PMD: Dr. Amauri Retana Bench Tool Maker: Dr. Whitten Physical Examination: - Constitutional Appears: Non-toxic, No Acute Distress - Head Exam Head Exam: ATRAUMATIC, NORMAL INSPECTION, NORMOCEPHALIC - Eye Exam Eye Exam: EOMI, Normal appearance - ENT Exam ENT Exam: Mucous Membranes Moist - Respiratory Exam Respiratory Exam: absent: Accessory Muscle Use, Clear to Auscultation Bilateral , Rales - Cardiovascular Exam Cardiovascular Exam: RRR, +S1, +S2. absent: JVD - GI/Abdominal Exam GI & Abdominal Exam: Normal Bowel Sounds, Soft. absent: Tenderness - Extremities Exam Extremities exam: Positive for: normal capillary refill. Negative for: pedal edema - Neurological Exam Neurological exam: Alert, Oriented x3 - Psychiatric Exam Psychiatric exam: Normal Affect, Normal Mood - Skin Skin Exam: Dry, Intact, Normal Color, Warm Assessment and Plan: Patient is a 47 year old male with a PMHx of CAD w/ Stent placement, PA, CHF, pacemaker/Defibrillator, and asthma/COPD who presents to the ED for evaluation and treatment of dizziness. Dizziness - potential cardiac etiology considering history - cardiology consulted- appreciate recommendations - CTA ordered and pending - orthostatics Hx of Asthma, COPD - Duoneb prn Hx of CAD - ASA - plavix if cardiology approves - lipitor - losartan - metoprolol - will consider restarting lasix and/or aldactone upon cardio approval Hx of CHF - Metoprolol 25 mg PO Daily - ECHO from 08/23 read pending Prophylaxis - No indication for GI proph - scds Patient case discussed with and plan approved by attending physician, Dr. Castellanos. Present on Admission - Present on Admission Any Indicators Present on Admission: No Past Patient History - Infectious Disease Hx of Infectious Diseases: None - Past Medical History & Family History Past Medical History?: Yes - Past Social History Smoking Status: Former Smoker - CARDIAC Hx Cardiac Disorders: Yes Hx Angina: Yes Other/Comment: defibrilater - PULMONARY Hx Respiratory Disorders: No - NEUROLOGICAL Hx Neurological Disorder: No - HEENT Hx HEENT Problems: No - RENAL Hx Chronic Kidney Disease: No - ENDOCRINE/METABOLIC Hx Endocrine Disorders: No - HEMATOLOGICAL/ONCOLOGICAL Hx Blood Disorders: No Hx AIDS: No - INTEGUMENTARY Hx Dermatological Problems: No - MUSCULOSKELETAL/RHEUMATOLOGICAL Hx Musculoskeletal Disorders: No Hx Falls: No - GASTROINTESTINAL Hx Gastrointestinal Disorders: No Hx Vomiting: No - GENITOURINARY/GYNECOLOGICAL Hx Genitourinary Disorders: No - PSYCHIATRIC Hx Psychophysiologic Disorder: No Hx Substance Use: No - SURGICAL HISTORY Other/Comment: Left Lung Biopsy, Cardiac Stent x1 - ANESTHESIA Hx Anesthesia: Yes Hx Anesthesia Reactions: No Hx Malignant Hyperthermia: No Meds Allergies/Adverse Reactions: Allergies Allergy/AdvReac Type Severity Reaction Status Date / Time pantoprazole sodium Allergy RASH Verified 07/19/16 21:37 [From Protonix] pantoprazole [From Protonix] AdvReac Unknown SWELLING Verified 08/21/17 23:31 Results - Vital Signs Recent Vital Signs: Last Vital Signs Temp 98.4 F 04/25/18 03:44 Pulse 70 08/24/17 06:44 Resp 12 08/24/17 06:44 BP 118/69 08/24/17 06:44 Pulse Ox 99 08/24/17 06:44 - Labs Result Diagrams: 08/24/17 03:50 08/24/17 03:50 <Valentin Rockwell - Last Filed: 08/28/17 11:22> Results - Vital Signs Recent Vital Signs: Last Vital Signs Temp 97.8 F 08/26/17 08:50 Pulse 74 08/26/17 08:50 Resp 16 08/26/17 08:50 BP 120/68 08/26/17 08:50 Pulse Ox 100 08/26/17 08:50 - Labs Result Diagrams: 08/26/17 06:45 08/26/17 06:45 Attending/Attestation - Attestation I have personally seen and examined this patient.: Yes I have fully participated in the care of the patient.: Yes I have reviewed all pertinent clinical information: Yes Notes (Text): I have seen and examined the patient at bedside. Agree with the above plan. Discussed with fermenting cellars supervisor.
--- NOTE | 2017-08-24 11:04 | CARD ---
APPROVED REPORT <Conclusion> NormalSinus Rythm. RBBB Lt.Ant.Floyd-Block. Possible Old Buzz Lat Wall [place]. Correlate Clinically.
[2017-08-24] MEDS ORDERED: Albuterol-Ipratrop 3 mg / 0.5 (3 ml) UD IH PRN (14:11)
[2017-08-24] MEDS ORDERED: Iodixanol 320 MG/ML 100 ML BOTTLE IV ONE (16:27)
--- NOTE | 2017-08-24 18:28 | CON ---
DATE: CARDIOLOGY CONSULT REASON FOR CONSULTATION: Syncopal episode. HISTORY OF PRESENT ILLNESS: The patient is a 47-year-old male who has a history of ischemic cardiomyopathy, status post ICD placement in 2016; history of coronary artery stenting in 2014. The patient stated that he underwent cardiac catheterization 2 months ago at [facility] in [place], [place] and was told he has no blockages. The patient was discharged yesterday after he was admitted for atypical chest pain. The patient was treated for congestive heart failure, MN was ruled out and echo revealed severely depressed ejection fraction, which was estimated at 34%. The patient after discharge went to his brother's house. He got dizzy upon standing and he fainted briefly. His brother brought him back to the emergency room. The patient does not recall experiencing palpitation and denies any recent discharge of the defibrillator. SOCIAL HISTORY: Nonsmoker. He is an occasional drinker. 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 MEDICATIONS: Aspirin 81 mg once a day, Cozaar 25 mg once a day, Lipitor 80 mg once a day, Lopressor 25 mg once a day. REVIEW OF SYSTEMS: No fever or chills. No productive cough. PHYSICAL EXAMINATION: GENERAL: The patient is a middle-aged male, who does not appear to be in any distress. VITAL SIGNS: Blood pressure 132/78, heart rate 86, temperature 98.6, respirations 16. HEENT: Normocephalic. CHEST: Bilateral basal coarse crepitations. HEART: S1 and S2 regular. ABDOMEN: Soft. EXTREMITIES: No edema. LABORATORY DATA: SMA-7 is within normal limits except for BUN of 33. One set of troponin is negative. Alcohol level is below 10. Hemoglobin and hematocrit 11.1 and 34, white count 16.6, platelet count 187,000. Chest x-ray revealed new infiltrate in right lower lobe and the right upper lobe. Recent chest CT scan on 08/18/2017 revealed limited by apical emphysema with trace associated ground-glass opacity. Ground-glass changes are of indeterminate timeframe, but could be acute or subacute. EKG revealed sinus rhythm, left atrial enlargement, left anterior fascicular block. Consider old anterolateral MN, which is the same EKG as during the most recent admission. ASSESSMENT: 1. Syncopal episode. 2. Ischemic cardiomyopathy. 3. Coronary artery disease with history of coronary stenting in 2014. 4. Rule out pneumonia versus interstitial lung disease. RECOMMENDATIONS: Continue current aspirin, Cozaar, Lipitor and Lopressor. I will obtain 2 sets of blood cultures and schedule the patient for CT angio of the chest. I did request the cardiac catheterization report performed 2 months ago at [facility] in [place]. Case was discussed with Dr. Rockwell, the primary physician. Eros Butt MD
--- NOTE | 2017-08-24 18:44 | CT ---
PROCEDURE: CT Chest with contrast (Pulmonary Angiogram) HISTORY: Rule out PE; interstitial disease. COMPARISON: Comparison made with plain film radiographs chest earlier same day TECHNIQUE: Axial computed tomography images were obtained of the chest in the pulmonary arterial phase of enhancement. Coronal and sagittal reformatted images were created and reviewed. Intravenous contrast dose: 95 cc Visipaque 320 contrast material. Radiation dose: Total exam DLP = 509.41 mGy-cm. This CT exam was performed using one or more of the following dose reduction techniques: Automated exposure control, adjustment of the mA and/or kV according to patient size, and/or use of iterative reconstruction technique. FINDINGS: PULMONARY ARTERIES: The visualized pulmonary trunk, right and left main, lobar, segmental and subsegmental branches of the pulmonary arteries are well opacified with no definitive filling defects seen to suggest acute pulmonary embolus. AORTA: No acute findings. No thoracic aortic aneurysm. LUNGS: Unremarkable. No nodule, mass or pulmonary consolidation. PLEURAL SPACES: Unremarkable. No effusion or no pneumothorax. HEART: Heart is enlarged. No significant pericardial effusion. There is an apparent on persistent left-sided the cava. LYMPH NODES: Multiple small to mildly enlarged on mediastinal lymph nodes are located in the left and right precarinal regions (ease on the right measuring approximately 13.1 mm and on the left measuring 19 mm There small medium-sized left-sided hilar lymph node measuring approximately 15 mm. Central airways are midline and patent. No obvious large central endoluminal lesions. BONES, CHEST WALL: No evidence of acute compression fractures no retropulsed fragments. Vertebral bodies exhibit normal stature. Mild multilevel degenerative spondylosis of the thoracic spine. OTHER FINDINGS: Inferior margin of the liver is incompletely visualized though the liver is estimated to be mildly enlarged IMPRESSION: No evidence of acute central pulmonary embolus. Cardiomegaly. Multiple small to enlarged mediastinal lymph nodes. Medium-sized left hilar lymph node. Centrilobular emphysematous changes upper lobe predominance. There also appear to be at paraseptal emphysematous changes in the lung apices and upper lobes. Scarring as seen in the left lingular region. Mild atelectasis passive/dependent type atelectasis both posterior lung zones Centrilobular emphysematous changes with upper lobe predominance. There also appear to be paraseptal emphysematous changes in the lung apices. Mild scarring lingular region. . Findings suggest mild hepatomegaly. Clinical correlation recommended.
[2017-08-25 07:18] LABS: EOS # 0.2 (0.0-0.7); EOS % 2.9 % (1.5-5.0); GRAN # 4.37 (1.4-6.5); GRAN % 60.6 % (50.0-68.0); HEMOGLOBIN 11.3 g/dL (14.0-18.0); LYMPH # 1.9 (1.2-3.4); MEAN CELL VOLUME 74.5 fl (80.0-105.0); MEAN CORPUSCULAR HEMOGLOBIN 23.8 pg (25.0-35.0); MEAN PLATELET VOLUME 9.4 fl (7.0-11.0); MONO # 0.8 (0.1-0.6); MONO % 10.5 % (1.0-6.0); RBC 4.74 10^6/uL (3.5-6.1); RED CELL DISTRIBUTION WIDTH 14.8 % (11.5-14.5); WHITE BLOOD COUNT 7.2 10^3/ul (4.5-11.0)
[2017-08-25 07:43] LABS: ALB/GLOB RATIO 1.4 (1.1-1.8); ALBUMIN 3.6 g/dL (3.0-4.8); ALT/SGPT 26 U/L (7-56); AST/SGOT 20 U/L (17-59); BLOOD UREA NITROGEN 18 mg/dL (7-21); CALCIUM 8.4 mg/dL (8.4-10.5); GFR AFRICAN-AMERICAN > 60; GFR NON-AFRICAN AMERICAN > 60
--- NOTE | 2017-08-25 11:27 | PN ---
DATE: 08/25/2017 SUBJECTIVE: The patient denies any dizziness, chest pain or shortness of breath. PHYSICAL EXAMINATION: VITAL SIGNS: Blood pressure 193/61, heart rate 70, temperature 97.7, respirations 20. HEENT: Normocephalic. CHEST: Bibasilar right crepitations. HEART: S1 and S2 regular. EXTREMITIES: No edema. LABORATORY DATA: Chest CT scan performed yesterday revealed no evidence of pulmonary embolism. Centrilobular emphysematous changes, upper lobe predominance. There also appears to be parasternal emphysematous changes. Mild atelectasis, passive dependent type atelectasis, both posterior lung zones. Rhythm strip revealed unusual pacemaker spike following the QRS complex. I did review the cardiac catheterization report from [facility] that was performed in 12/2016, was found to have total occlusion of the mid LAD with collateral vessel from circumflex artery and 80% stenosis of an obtuse marginal branch with minimal right coronary artery disease and severely depressed ejection fraction and the plan at that time was continue medical therapy. ASSESSMENT: 1. Syncopal episode. 2. Ischemic cardiomyopathy with chronic total occlusion of the mid left anterior descending. 3. Emphysema. RECOMMENDATIONS: Continue current aspirin, Cozaar, Lipitor and Lopressor therapy. I did request EP evaluation. The patient stated that his ICD was interrogated recently at [facility]. Long-term anticoagulation is recommended, but it has to be cleared by the patient's technical customer support specialist, Dr. Whitten at [facility] and the patient has an appointment to see him within a week or so. Eros Butt MD
--- NOTE | 2017-08-25 12:21 | CP.PCM.PN ---
<Titi Rowley - Last Filed: 08/25/17 12:13> Subjective - Date & Time of Evaluation Date of Evaluation: 08/25/17 Time of Evaluation: 10:45 - Subjective Subjective: Subjective: Patient seen and examined at bedside. Resting comfortably in bed. No acute overnight events. Patient states his dizziness has improved relative to baseline. Offers no new complaints at this time. Denies fever, chills, chest pain, shortness of breath, abdominal pain, nausea, vomiting, diarrhea, constipation, and urinary symptoms. 12-point review of systems negative except as indicated in the HPI Physical Examination: - Constitutional Appears: Non-toxic, No Acute Distress - Head Exam Head Exam: ATRAUMATIC, NORMAL INSPECTION, NORMOCEPHALIC - Eye Exam Eye Exam: EOMI, Normal appearance - ENT Exam ENT Exam: Mucous Membranes Moist - Respiratory Exam Respiratory Exam: absent: Accessory Muscle Use, Clear to Auscultation Bilateral , Rales - Cardiovascular Exam Cardiovascular Exam: RRR, +S1, +S2. absent: JVD - GI/Abdominal Exam GI & Abdominal Exam: Normal Bowel Sounds, Soft. absent: Tenderness - Extremities Exam Extremities exam: Positive for: normal capillary refill. Negative for: pedal edema - Neurological Exam Neurological exam: Alert, Oriented x3 - Psychiatric Exam Psychiatric exam: Normal Affect, Normal Mood - Skin Skin Exam: Dry, Intact, Normal Color, Warm Assessment and Plan: Patient is a 47 year old male with a PMHx of CAD w/ Stent placement, CT, CHF, pacemaker/Defibrillator, and asthma/COPD who presents to the ED for evaluation and treatment of dizziness. Dizziness - potential cardiac etiology considering history - cardiology consulted- EP consult pending - CTA -No evidence of acute central pulmonary embolus. Cardiomegaly. Multiple small to enlarged mediastinal lymph nodes. Medium-sized left hilar lymph node. Centrilobular emphysematous changes upper lobe predominance. There also appear to be at paraseptal emphysematous changes in the lung apices and upper lobes. Scarring as seen in the left lingular region. Mild atelectasis passive/ dependent type atelectasis both posterior lung zones. Centrilobular emphysematous changes with upper lobe predominance. There also appear to be paraseptal emphysematous changes in the lung apices. Mild scarring lingular region. Findings suggest mild hepatomegaly. Cough, Phelm - possibly 2/2 CAP - doxycycline 100mg PO q12 - blood culture and sputum culture - procal ordered and pending Hx of Asthma, COPD - Duoneb prn Hx of CAD - ASA - plavix if cardiology approves - lipitor - losartan - metoprolol - will consider restarting lasix and/or aldactone upon cardio approval Hx of CHF - Metoprolol 25 mg PO Daily - ECHO from 08/23 read pending Prophylaxis - No indication for GI prophylaxis - scds Patient case discussed with and plan approved by attending physician, Dr. Rockwell. Objective - Vital Signs/Intake and Output Vital Signs (last 24 hours): Temp Pulse Resp BP Pulse Ox 97.7 F 70 20 93/61 L 98 08/25/17 08:26 08/25/17 10:43 08/25/17 08:26 08/25/17 10:43 08/25/17 08:26 Intake and Output: 08/25/17 08/25/17 06:59 18:59 Intake Total 1160 Output Total 1100 Balance 60 - Medications Medications: Current Medications Albuterol/Ipratropium (Duoneb 3 Mg/0.5 Mg (3 Ml) Ud) 3 ml IH [id number] PRN PRN Reason: Shortness of Breath Aspirin (Aspirin Chewable) 81 mg PO DAILY [facility] Last Admin: 08/25/17 10:48 Dose: 81 mg Atorvastatin Calcium (Lipitor) 80 mg PO DAILY [facility] Last Admin: 08/25/17 10:48 Dose: 80 mg Losartan Potassium (Cozaar) 25 mg PO DAILY [facility] Last Admin: 08/25/17 10:43 Dose: Not Given Metoprolol Tartrate (Lopressor) 12.5 mg PO BID [facility] Last Admin: 08/25/17 10:43 Dose: Not Given - Labs Labs: 08/25/17 06:45 08/25/17 06:45 PT 10.8 SECONDS (9.4-12.5) 08/24/17 03:50 INR 0.95 (0.93-1.08) 08/24/17 03:50 APTT 25.9 Seconds (25.1-36.5) 08/24/17 03:50 <Valentin Rockwell - Last Filed: 08/28/17 11:35> Objective - Vital Signs/Intake and Output Vital Signs (last 24 hours): Temp Pulse Resp BP Pulse Ox 97.8 F 74 16 120/68 100 08/26/17 08:50 08/26/17 08:50 08/26/17 08:50 08/26/17 08:50 08/26/17 08:50 - Labs Labs: 08/26/17 06:45 08/26/17 06:45 PT 10.8 SECONDS (9.4-12.5) 08/24/17 03:50 INR 0.95 (0.93-1.08) 08/24/17 03:50 APTT 25.9 Seconds (25.1-36.5) 08/24/17 03:50 Attending/Attestation - Attestation I have personally seen and examined this patient.: Yes I have fully participated in the care of the patient.: Yes I have reviewed all pertinent clinical information, including history, physical exam and plan: Yes Notes (Text): I have seen and examined the patient at bedside. Agree with the above plan. Discussed with senior network engineer. Patient denies any complaints. EP consult was placed today.
[2017-08-25 19:35] VITALS: TEMP 97.8
[2017-08-26 07:18] LABS: EOS # 0.4 (0.0-0.7); EOS % 5.5 % (1.5-5.0); GRAN # 4.43 (1.4-6.5); GRAN % 65.4 % (50.0-68.0); HEMOGLOBIN 11.8 g/dL (14.0-18.0); LYMPH # 1.4 (1.2-3.4); LYMPH % 21.3 % (22.0-35.0); MEAN CELL VOLUME 74.9 fl (80.0-105.0); MEAN CORPUSCULAR HEMOGLOBIN 23.6 pg (25.0-35.0); MEAN CORPUSCULAR HGB CONC 31.5 g/dl (31.0-37.0); MEAN PLATELET VOLUME 9.7 fl (7.0-11.0); MONO # 0.5 (0.1-0.6); MONO % 7.8 % (1.0-6.0); RBC 5.01 10^6/uL (3.5-6.1); RED CELL DISTRIBUTION WIDTH 14.7 % (11.5-14.5); WHITE BLOOD COUNT 6.8 10^3/ul (4.5-11.0)
[2017-08-26 07:35] LABS: ALB/GLOB RATIO 1.4 (1.1-1.8); ALBUMIN 3.8 g/dL (3.0-4.8); ALT/SGPT 25 U/L (7-56); AST/SGOT 23 U/L (17-59); BLOOD UREA NITROGEN 17 mg/dL (7-21); CALCIUM 8.9 mg/dL (8.4-10.5); GFR AFRICAN-AMERICAN > 60; GFR NON-AFRICAN AMERICAN > 60
[2017-08-26 08:50] VITALS: BP 120/68; PULSE 74; RESP 16; O2SAT 100
--- NOTE | 2017-08-26 10:06 | CP.PCM.DIS ---
<Titi Rowley - Last Filed: 08/26/17 11:39> Provider - Provider Date of Admission: 08/25/17 12:04 Attending physician: Valentin Rockwell MD Time Spent in preparation of Discharge (in minutes): 45 Diagnosis - Discharge Diagnosis (1) Dizziness Status: Chronic Priority: Medium (2) AICD (automatic cardioverter/defibrillator) present Status: Chronic Priority: Medium (3) Chest pain, musculoskeletal Status: Chronic (4) Congestive heart failure Status: Chronic Priority: Medium Hospital Course - Lab Results Lab Results: Most Recent Lab Values WBC 6.8 10^3/ul (4.5-11.0) 08/26/17 06:45 RBC 5.01 10^6/uL (3.5-6.1) 08/26/17 06:45 Hgb 11.8 g/dL (14.0-18.0) L 08/26/17 06:45 Hct 37.5 % (42.0-52.0) L 08/26/17 06:45 MCV 74.9 fl (80.0-105.0) L 08/26/17 06:45 MCH 23.6 pg (25.0-35.0) L 08/26/17 06:45 MCHC 31.5 g/dl (31.0-37.0) 08/26/17 06:45 RDW 14.7 % (11.5-14.5) H 08/26/17 06:45 Plt Count 251 10^3/uL (120.0-450.0) 08/26/17 06:45 MPV 9.7 fl (7.0-11.0) 08/26/17 06:45 Gran % 65.4 % (50.0-68.0) 08/26/17 06:45 Lymph % (Auto) 21.3 % (22.0-35.0) L 08/26/17 06:45 [place] % (Auto) 7.8 % (1.0-6.0) H 08/26/17 06:45 Eos % (Auto) 5.5 % (1.5-5.0) H 08/26/17 06:45 Baso % (Auto) 0.0 % (0.0-3.0) 08/26/17 06:45 Gran # 4.43 (1.4-6.5) 08/26/17 06:45 Lymph # (Auto) 1.4 (1.2-3.4) 08/26/17 06:45 [place] # (Auto) 0.5 (0.1-0.6) 08/26/17 06:45 Eos # (Auto) 0.4 (0.0-0.7) 08/26/17 06:45 Baso # (Auto) 0.00 K/mm3 (0.0-2.0) 08/26/17 06:45 PT 10.8 SECONDS (9.4-12.5) 08/24/17 03:50 INR 0.95 (0.93-1.08) 08/24/17 03:50 APTT 25.9 Seconds (25.1-36.5) 08/24/17 03:50 Sodium 142 mmol/L (132-148) 08/26/17 06:45 Potassium 3.8 mmol/L (3.6-5.0) 08/26/17 06:45 Chloride 101 mmol/L (98-107) 08/26/17 06:45 Carbon Dioxide 27 mmol/L (21-33) 08/26/17 06:45 Anion Gap 17 (10-20) 08/26/17 06:45 BUN 17 mg/dL (7-21) 08/26/17 06:45 Creatinine 0.7 mg/dl (0.8-1.5) L 08/26/17 06:45 Est GFR ( Amer) > 60 08/26/17 06:45 Est GFR (Non-Af Amer) > 60 08/26/17 06:45 Random Glucose 125 mg/dL (70-110) H 08/26/17 06:45 Calcium 8.9 mg/dL (8.4-10.5) 08/26/17 06:45 Magnesium 2.0 mg/dL (1.7-2.2) 08/24/17 03:50 Total Bilirubin 0.3 mg/dL (0.2-1.3) 08/26/17 06:45 AST 23 U/L (17-59) 08/26/17 06:45 ALT 25 U/L (7-56) 08/26/17 06:45 Alkaline Phosphatase 62 U/L (38-126) 08/26/17 06:45 Lactate Dehydrogenase 530 U/L (333-699) 08/24/17 03:50 Total Creatine Kinase 49 U/L (35-230) 08/24/17 03:50 Troponin I < 0.01 ng/mL D 08/24/17 03:50 NT-Pro-B Natriuret Pep 133 pg/mL (0-450) 08/24/17 03:50 Total Protein 6.5 g/dL (5.8-8.3) 08/26/17 06:45 Albumin 3.8 g/dL (3.0-4.8) 08/26/17 06:45 Globulin 2.7 gm/dL 08/26/17 06:45 Albumin/Globulin Ratio 1.4 (1.1-1.8) 08/26/17 06:45 Procalcitonin < 0.05 NG/ML (0.19-0.49) L 08/25/17 07:30 Urine Color Light yellow (YELLOW) 08/24/17 03:50 Urine Appearance Clear (CLEAR) 08/24/17 03:50 Urine pH 6.0 (4.7-8.0) 08/24/17 03:50 Ur Specific [place] 1.015 (1.005-1.035) 08/24/17 03:50 Urine Protein Negative mg/dL (<30 mg/dL) 08/24/17 03:50 Urine Glucose (UA) Negative mg/dL (NEGATIVE) 08/24/17 03:50 Urine Ketones Negative mg/dL (NEGATIVE) 08/24/17 03:50 Urine Blood Negative (NEGATIVE) 08/24/17 03:50 Urine Nitrate Negative (NEGATIVE) 08/24/17 03:50 Urine Bilirubin Negative (NEGATIVE) 08/24/17 03:50 Urine Urobilinogen 0.2 E.U./dL (<1 E.U./dL) 08/24/17 03:50 Ur Leukocyte Esterase Negative [place]/uL (NEGATIVE) 08/24/17 03:50 Alcohol, Quantitative < 10 mg/dL (0-10) 08/24/17 03:50 - Hospital Course Hospital Course: Patient is a 47 year old male with a PMHx of CAD w/ Stent placement, [place], CHF, pacemaker/Defibrillator, and asthma/COPD who was admitted for evaluation and treatment of dizziness. With the use of physical examinations, lab work, and imaging the patient was diagnosed with and treated for the dizziness secondary to medication use with cardiogenic etiologies being ruled out, along with the patients chronic medical conditions. During their hospital stay the patient was seen by cardiology (Dr. Butt and Dr. Orellana) whose recommendations were both appreciated and utilized in the care for this patient. Patient's AICD was interrogated and was deemed functional. During their hospital stay the patient underwent a CTA and cxr which were reviewed, appreciated, and utilized in the management of the patients clinical course. The CTA of the chest no evidence of acute central pulmonary embolus, cardiomegaly, multiple small to enlarged mediastinal lymph nodes, medium-sized left hilar lymph node, centrilobular emphysematous changes upper lobe predominance, paraseptal emphysematous changes in the lung apices and upper lobes, scarring as seen in the left lingular region , mild atelectasis passive/dependent type atelectasis both posterior lung zones , centrilobular emphysematous changes with upper lobe predominance, paraseptal emphysematous changes in the lung apices, mild scarring lingular region, and mild hepatomegaly. Patient was treated with acetaminophen, aspirin, lipitor, losartan, lopressor amongst other empiric/therapeutic medications. At this time the patient is medically stable for discharge. Patient understands and appreciates discharge plan. Patient instructed to follow up with primary care physicians and referrals within three to five days from discharge. Furthermore, the patient is instructed to take medications as prescribed and to return to emergency room for evaluation of intractable headache, fever, chills, dizziness , chest pain, shortness of breath, abdominal pain, nausea, vomiting, diarrhea, constipation, and urinary symptoms. This is a brief summary of the patients hospital course. Please see patient chart for full details. Discharge Exam - Additional Findings Additional findings: - Constitutional Appears: Non-toxic, No Acute Distress - Head Exam Head Exam: ATRAUMATIC, NORMAL INSPECTION, NORMOCEPHALIC - Eye Exam Eye Exam: EOMI, Normal appearance - ENT Exam ENT Exam: Mucous Membranes Moist - Respiratory Exam Respiratory Exam: absent: Accessory Muscle Use, Clear to Auscultation Bilateral , Rales - Cardiovascular Exam Cardiovascular Exam: RRR, +S1, +S2. absent: JVD - GI/Abdominal Exam GI & Abdominal Exam: Normal Bowel Sounds, Soft. absent: Tenderness - Extremities Exam Extremities exam: Positive for: normal capillary refill. Negative for: pedal edema - Neurological Exam Neurological exam: Alert, Oriented x3 - Psychiatric Exam Psychiatric exam: Normal Affect, Normal Mood - Skin Skin Exam: Dry, Intact, Normal Color, Warm Discharge Plan - Discharge Medications Prescriptions: Metoprolol Tartrate [Lopressor] 12.5 mg PO BID #28 tab Spironolactone [Aldactone] 12.5 mg PO DAILY #14 tab - Follow Up Plan Condition: GOOD Disposition: HOME/ ROUTINE Instructions: Chest Pain (ED) Additional Instructions: Patient Instructions: Take medications as prescribed. Follow up with PMD and referrals within three to five days from discharge. Please attain a basic metabolic panel in 3-5 days from discharge. Return to the emergency room for evaluation of intractable headache, fever, chills, dizziness, chest pain, SOB, abdominal pain, nausea, vomiting, diarrhea, constipation, and urinary symptoms. Referrals: Eros Butt MD [Staff Provider] - <Valentin Rockwell - Last Filed: 08/28/17 11:36> Provider - Provider Date of Admission: 08/24/17 06:57 Attending physician: Valentin Rockwell MD Hospital Course - Lab Results Lab Results: Micro Results 08/24/17 14:15 Blood-Venous Blood Culture - Preliminary NO GROWTH AFTER 3 DAYS Most Recent Lab Values WBC 6.8 10^3/ul (4.5-11.0) 08/26/17 06:45 RBC 5.01 10^6/uL (3.5-6.1) 08/26/17 06:45 Hgb 11.8 g/dL (14.0-18.0) L 08/26/17 06:45 Hct 37.5 % (42.0-52.0) L 08/26/17 06:45 MCV 74.9 fl (80.0-105.0) L 08/26/17 06:45 MCH 23.6 pg (25.0-35.0) L 08/26/17 06:45 MCHC 31.5 g/dl (31.0-37.0) 08/26/17 06:45 RDW 14.7 % (11.5-14.5) H 08/26/17 06:45 Plt Count 251 10^3/uL (120.0-450.0) 08/26/17 06:45 MPV 9.7 fl (7.0-11.0) 08/26/17 06:45 Gran % 65.4 % (50.0-68.0) 08/26/17 06:45 Lymph % (Auto) 21.3 % (22.0-35.0) L 08/26/17 06:45 [place] % (Auto) 7.8 % (1.0-6.0) H 08/26/17 06:45 Eos % (Auto) 5.5 % (1.5-5.0) H 08/26/17 06:45 Baso % (Auto) 0.0 % (0.0-3.0) 08/26/17 06:45 Gran # 4.43 (1.4-6.5) 08/26/17 06:45 Lymph # (Auto) 1.4 (1.2-3.4) 08/26/17 06:45 [place] # (Auto) 0.5 (0.1-0.6) 08/26/17 06:45 Eos # (Auto) 0.4 (0.0-0.7) 08/26/17 06:45 Baso # (Auto) 0.00 K/mm3 (0.0-2.0) 08/26/17 06:45 PT 10.8 SECONDS (9.4-12.5) 08/24/17 03:50 INR 0.95 (0.93-1.08) 08/24/17 03:50 APTT 25.9 Seconds (25.1-36.5) 08/24/17 03:50 Sodium 142 mmol/L (132-148) 08/26/17 06:45 Potassium 3.8 mmol/L (3.6-5.0) 08/26/17 06:45 Chloride 101 mmol/L (98-107) 08/26/17 06:45 Carbon Dioxide 27 mmol/L (21-33) 08/26/17 06:45 Anion Gap 17 (10-20) 08/26/17 06:45 BUN 17 mg/dL (7-21) 08/26/17 06:45 Creatinine 0.7 mg/dl (0.8-1.5) L 08/26/17 06:45 Est GFR ( Amer) > 60 08/26/17 06:45 Est GFR (Non-Af Amer) > 60 08/26/17 06:45 Random Glucose 125 mg/dL (70-110) H 08/26/17 06:45 Calcium 8.9 mg/dL (8.4-10.5) 08/26/17 06:45 Magnesium 2.0 mg/dL (1.7-2.2) 08/24/17 03:50 Total Bilirubin 0.3 mg/dL (0.2-1.3) 08/26/17 06:45 AST 23 U/L (17-59) 08/26/17 06:45 ALT 25 U/L (7-56) 08/26/17 06:45 Alkaline Phosphatase 62 U/L (38-126) 08/26/17 06:45 Lactate Dehydrogenase 530 U/L (333-699) 08/24/17 03:50 Total Creatine Kinase 49 U/L (35-230) 08/24/17 03:50 Troponin I < 0.01 ng/mL D 08/24/17 03:50 NT-Pro-B Natriuret Pep 133 pg/mL (0-450) 08/24/17 03:50 Total Protein 6.5 g/dL (5.8-8.3) 08/26/17 06:45 Albumin 3.8 g/dL (3.0-4.8) 08/26/17 06:45 Globulin 2.7 gm/dL 08/26/17 06:45 Albumin/Globulin Ratio 1.4 (1.1-1.8) 08/26/17 06:45 Procalcitonin < 0.05 NG/ML (0.19-0.49) L 08/25/17 07:30 Urine Color Light yellow (YELLOW) 08/24/17 03:50 Urine Appearance Clear (CLEAR) 08/24/17 03:50 Urine pH 6.0 (4.7-8.0) 08/24/17 03:50 Ur Specific [place] 1.015 (1.005-1.035) 08/24/17 03:50 Urine Protein Negative mg/dL (<30 mg/dL) 08/24/17 03:50 Urine Glucose (UA) Negative mg/dL (NEGATIVE) 08/24/17 03:50 Urine Ketones Negative mg/dL (NEGATIVE) 08/24/17 03:50 Urine Blood Negative (NEGATIVE) 08/24/17 03:50 Urine Nitrate Negative (NEGATIVE) 08/24/17 03:50 Urine Bilirubin Negative (NEGATIVE) 08/24/17 03:50 Urine Urobilinogen 0.2 E.U./dL (<1 E.U./dL) 08/24/17 03:50 Ur Leukocyte Esterase Negative [place]/uL (NEGATIVE) 08/24/17 03:50 Alcohol, Quantitative < 10 mg/dL (0-10) 08/24/17 03:50 Attending/Attestation - Attestation I have personally seen and examined this patient.: Yes I have fully participated in the care of the patient.: Yes I have reviewed all pertinent clinical information, including history, physical exam and plan: Yes Notes (Text): I have seen and examined the patient at bedside. Agree with the above plan. Discussed with machine ironer.
== END 2017-08-26 15:35 | disposition home or self-care (01) ==
LOC: ED 03:22 → ERH 06:57 → 3RSO 11:43 → OBSVTOIN 08-25 12:04 → INTOOBSV 08-25 12:04
PROVIDERS: ADMIT Hospitalist; ATTEND Hospitalist
DX: R07.89 Other chest pain (principal); I25.10 Atherosclerotic heart disease of native coronary artery without angina pectoris; I25.5 Ischemic cardiomyopathy; I25.82 Chronic total occlusion of coronary artery; I50.9 Heart failure, unspecified; J43.9 Emphysema, unspecified; I25.2 Old myocardial infarction; R42 Dizziness and giddiness; R55 Syncope and collapse; R59.0 Localized enlarged lymph nodes; Z95.810 Presence of automatic (implantable) cardiac defibrillator; Z95.5 Presence of coronary angioplasty implant and graft; Z87.891 Personal history of nicotine dependence; Z79.02 Long term (current) use of antithrombotics/antiplatelets; Z79.82 Long term (current) use of aspirin; Z79.899 Other long term (current) drug therapy
CPT/HCPCS: 36415; 71045; 71275; 80053; 80320; 81003; 82550; 83615; 83735; 83880; 84145; 84484; 85025; 85610; 85730; 87040; 93005; 99285; G0378; Q9967

== ENCOUNTER 2017-08-28 21:53 | Emergency (ER) | payer MEDICAID ==
[2017-08-28 21:53] VITALS: BMI 24.0
--- NOTE | 2017-08-28 23:36 | ED PDOC ---
Arrival/HPI - General Historian: Patient - General Chief Complaint: Chest Pain Time Seen by Provider: 08/28/17 23:24 - History of Present Illness Narrative History of Present Illness (Text): 08/28/17 23:35 Patient is a 47 year old male with a past medical history of CAD w/ Stent placement, [place], CHF, pacemaker/Defibrillator, and asthma/COPD presenting to the emergency room with a CC of chest pain. Patient is resting comfortably in bed, speaking in full sentences and laughing. He was recently discharged two days ago after being admitted for chest pain and dizziness. Patient states that he forgot his medications on the bed when he was discharged. He attempted to call Dr. Butt to obtain medications over the phone but was unable to get in contact with him. He states that he started to get chest pain three hours ago. This is the same chest pain that he had when he was admitted. It is located on the left side of his chest, does not radiate. He took two 81mg aspirin while in the waiting room. He states he has a little bit of wheezing but is not struggling to breath at this time. He still has the chest pain at the time of exam. He denies fevers, chills, nausea, vomiting, diarrhea, constipation, abdominal pain, headaches, numbness or tingling. (Zaina,Deondre) Past Medical History - Provider Review Nursing Documentation Reviewed: Yes - Infectious Disease Hx of Infectious Diseases: None - Cardiac Hx Cardiac Disorders: Yes Hx Congestive Heart Failure: Yes Hx Hypertension: Yes - Pulmonary Hx Respiratory Disorders: No - Neurological Hx Neurological Disorder: No - HEENT Hx HEENT Disorder: No - Renal Hx Renal Disorder: No - Endocrine/Metabolic Hx Endocrine Disorders: No - Hematological/Oncological Hx Blood Disorders: No Hx AIDS: No - Integumentary Hx Dermatological Disorder: No - Musculoskeletal/Rheumatological Hx Musculoskeletal Disorders: No Hx Falls: No - Gastrointestinal Hx Gastrointestinal Disorders: No Hx Vomiting: No - Genitourinary/Gynecological Hx Genitourinary Disorders: No - Psychiatric Hx Psychophysiologic Disorder: No Hx Substance Use: No - Surgical History Other/Comment: Left Lung Biopsy, Cardiac Stent x1 - Anesthesia Hx Anesthesia: Yes Hx Anesthesia Reactions: No Hx Malignant Hyperthermia: No Family/Social History Family/Social History: Unknown Family HX Smoking Status: Former Smoker Hx Alcohol Use: No Hx Substance Use: No Allergies/Home Meds Allergies/Adverse Reactions: Allergies pantoprazole sodium [From Protonix] Allergy (Verified 07/19/16 21:37) RASH pantoprazole [From Protonix] Adverse Reaction (Unknown, Verified 08/21/17 23:31) SWELLING Home Medications: Home Meds Medication Instructions Recorded Confirmed Aspirin [Aspirin Chewable] 81 mg PO DAILY 08/21/17 08/24/17 Atorvastatin [Lipitor] 80 mg PO DAILY 08/21/17 08/24/17 Clopidogrel [Plavix] 75 mg PO DAILY 08/21/17 08/24/17 Review of Systems - Physician Review All systems were reviewed & negative as marked: Yes - Review of Systems Constitutional: Normal Eyes: Normal ENT: Normal Respiratory: Normal Cardiovascular: Chest Pain. absent: Palpitations, Edema, Calf Pain, FITZPATRICK, Syncope Gastrointestinal: Normal Musculoskeletal: Normal Skin: Normal Neurological: Normal Endocrine: Normal Hemo/Lymphatic: Normal Psychiatric: Normal Physical Exam Temperature: Afebrile Blood Pressure: Normal Pulse: Tachycardic Respiratory Rate: Normal Appearance: Positive for: Well-Appearing, Non-Toxic, Comfortable Pain Distress: None Mental Status: Positive for: Alert and Oriented X 3 - Systems Exam Head: Present: Atraumatic, Normocephalic Pupils: Present: PERRL Extroacular Muscles: Present: EOMI Conjunctiva: Present: Normal Mouth: Present: Moist Mucous Membranes Neck: Present: Normal Range of Motion Respiratory/Chest: Present: Clear to Auscultation, Wheezes (throughout b/l). No : Respiratory Distress, Accessory Muscle Use, Rales, Rhonchi, Tender to Palpation Cardiovascular: Present: Regular Rate and Rhythm, Normal S1, S2. No: Murmurs Abdomen: No: Tenderness, Distention, Peritoneal Signs Back: Present: Normal Inspection Upper Extremity: Present: Normal Inspection. No: Cyanosis, Edema Lower Extremity: Present: Normal Inspection. No: Edema Neurological: Present: GCS=15, CN II-XII Intact, Speech Normal Skin: Present: Warm, Dry, Normal Color. No: Rashes Psychiatric: Present: Alert, Oriented x 3, Normal Insight, Normal Concentration Vital Signs Temp Pulse Resp BP Pulse Ox 08/29/17 06:00 98.1 F 75 18 117/75 97 08/29/17 03:00 98.0 F 82 183 H 120/74 98 08/28/17 23:18 98.3 F 102 H 20 122/86 97 Medical Decision Making Re-evaluation Time: 06:15 Reassessment Condition: Improved - Lab Interpretations I have reviewed the lab results: Yes - RAD Interpretation Vacuum Cleaner Repairer: ED Physician - EKG Interpretation Interpreted by ED Physician: Yes Type: 12 lead EKG Comparison: Similar to previous EKG ED Course and Treatment: Impression: Pt seen and evaluated with medical records director. Aware and agrees with HPI, clinical findings, plan, and management. Pt, whose past medical history includes CAD with stent placement, [place], CHF, pacemaker/defibrillator, asthma, and COPD, presented for left-sided chest pain and some wheezing. Pt was recently d/c from the hospital following treatment for similar complaints 2 days ago. Plan: -- EKG -- Chest X-ray -- Labs, cardiac enzymes -- Urinalysis -- Duoneb -- Aspirin -- Reassess and disposition (Eliud Jesus) 08/28/17 23:52 Ordered Bloodwork, EKG, CXR Patient given duoneb and 162mg of Aspirin (patient states he already took 162mg of Aspirin while in waiting room). Patient was discharged on metoprolol and aldactone - patient is requesting a prescription of these medications. 08/28/17 23:56 08/29/17 02:11 patient is sleeping, resting comfortably. All labs normal. 08/29/17 06:29 Patient's symptoms have resolved. He was given new prescriptions for the ones he lost after his previous hospitalization and discharged home. (ZainaDeondre hoang) - Lab Interpretations Lab Results: 08/29/17 00:25 08/29/17 00:25 Lab Results 08/29/17 00:25: Sodium 140, Potassium 4.0, Chloride 103, Carbon Dioxide 27, Anion Gap 14, BUN 17, Creatinine 0.9, Est GFR ( Amer) > 60, Est GFR (Non- Af Amer) > 60, Random Glucose 98, Calcium 8.5, Magnesium 2.1, Total Bilirubin 0.4, AST 25, ALT 32, Alkaline Phosphatase 76, Lactate Dehydrogenase 456, Total Creatine Kinase 52, Troponin I < 0.01, Total Protein 6.6, Albumin 3.8, Globulin 2.8, Albumin/Globulin Ratio 1.4 08/29/17 00:25: PT 11.7, INR 1.03, APTT 27.7 08/29/17 00:25: WBC 7.4, RBC 4.43, Hgb 10.5 L, Hct 33.4 L, MCV 75.4 L, MCH 23.7 L, MCHC 31.4, RDW 14.9 H, Plt Count 226, MPV 9.5, Gran % 66.1, Lymph % (Auto) 17.2 L, [place] % (Auto) 11.2 H, Eos % (Auto) 5.4 H, Baso % (Auto) 0.1, Gran # 4.91 , Lymph # (Auto) 1.3, [place] # (Auto) 0.8 H, Eos # (Auto) 0.4, Baso # (Auto) 0.01 08/29/17 00:20: Urine Color Yellow, Urine Appearance Clear, Urine pH 6.0, Ur Specific [place] 1.020, Urine Protein Negative, Urine Glucose (UA) Negative, Urine Ketones Negative, Urine Blood Trace-intact H, Urine Nitrate Negative, Urine Bilirubin Negative, Urine Urobilinogen 0.2, Ur Leukocyte Esterase Negative , Urine RBC 1 - 3, Urine WBC 0 - 2, Ur Epithelial Cells 0 - 2 - RAD Interpretation Narrative RAD Interpretations (Text): 08/29/17 00:27 CXR - No active disease. No change from prior CXR on 08/24/17. (Deondre Mahajan) Radiology Orders: 08/28/17 23:40 CHEST PORTABLE [RAD] Stat - EKG Interpretation EKG Interpretation (Text): 08/29/17 06:33 NSR, right BBB - no change from previous EKG on 08/24/17 (Deondre Mahajan) - Medication Orders Current Medication Orders: Discontinued Medications Albuterol/Ipratropium (Duoneb 3 Mg/0.5 Mg (3 Ml) Ud) 3 ml IH STAT STA Stop: 08/28/17 23:40 Last Admin: 08/29/17 00:16 Dose: 3 ml Aspirin (Ecotrin) 162 mg PO STAT STA Stop: 08/28/17 23:41 Last Admin: 08/29/17 00:17 Dose: 162 mg Disposition/Present on Arrival - Present on Arrival Any Indicators Present on Arrival: Yes History of DVT/PE: Yes History of Uncontrolled Diabetes: No Urinary Catheter: No History of Decub. Ulcer: No History Surgical Site Infection Following: None - Disposition Have Diagnosis and Disposition been Completed?: Yes Disposition Time: 06:20 Patient Plan: Discharge - Disposition Diagnosis: Chest pain Disposition: HOME/ ROUTINE Patient Problems: Current Active Problems Problem Status Onset Chest pain Chronic Condition: GOOD Discharge Instructions (ExitCare): Chest Pain (ED) Additional Instructions: Patient is being discharge home. He is being given prescriptions for his newly prescribed medications from his recent hospitalization which the patient lost. He is to follow up with his primary care physician within 2-3 days. Please return to the hospital with if you experience any new or worsening symptoms. Prescriptions: Metoprolol Tartrate [Lopressor] 12.5 mg PO BID #28 tab Spironolactone [Aldactone] 12.5 mg PO DAILY #14 tab Forms: [employer] (Indonesian)
[2017-08-28] MEDS ORDERED: Albuterol-Ipratrop 3 mg / 0.5 (3 ml) UD IH STA (23:39)
[2017-08-29 00:52] LABS: BASO # 0.01 K/mm3 (0.0-2.0); BASO % 0.1 % (0.0-3.0); EOS # 0.4 (0.0-0.7); EOS % 5.4 % (1.5-5.0); GRAN # 4.91 (1.4-6.5); GRAN % 66.1 % (50.0-68.0); HEMOGLOBIN 10.5 g/dL (14.0-18.0); LYMPH # 1.3 (1.2-3.4); LYMPH % 17.2 % (22.0-35.0); MEAN CELL VOLUME 75.4 fl (80.0-105.0); MEAN CORPUSCULAR HEMOGLOBIN 23.7 pg (25.0-35.0); MEAN CORPUSCULAR HGB CONC 31.4 g/dl (31.0-37.0); MEAN PLATELET VOLUME 9.5 fl (7.0-11.0); MONO # 0.8 (0.1-0.6); MONO % 11.2 % (1.0-6.0); RBC 4.43 10^6/uL (3.5-6.1); RED CELL DISTRIBUTION WIDTH 14.9 % (11.5-14.5); WHITE BLOOD COUNT 7.4 10^3/ul (4.5-11.0)
[2017-08-29 00:57] LABS: URINE BILIRUBIN NEGATIVE (NEGATIVE); URINE BLOOD TRACE-INTACT (NEGATIVE); URINE GLUCOSE (UA) NEGATIVE (NEGATIVE); URINE LEUKOCYTE ESTERASE NEGATIVE Leu/uL (NEGATIVE); URINE PROTEIN NEGATIVE mg/dL (<30 mg/dL); URINE UROBILINOGEN 0.2 E.U./dL (<1 E.U./dL)
[2017-08-29 00:59] LABS: INR 1.03 (0.93-1.08); PARTIAL THROMBOPLASTIN TIME 27.7 Seconds (25.1-36.5); PROTHROMBIN TIME 11.7 SECONDS (9.4-12.5)
[2017-08-29 01:01] LABS: URINE APPEARANCE CLEAR (CLEAR); URINE COLOR YELLOW (YELLOW)
[2017-08-29 01:12] LABS: URINE EPITHELIAL CELLS 0 - 2 /hpf (0-5); URINE WBC 0 - 2 /hpf (0-6)
[2017-08-29 01:37] LABS: TROPONIN I < 0.01 ng/mL
[2017-08-29 02:08] LABS: ALB/GLOB RATIO 1.4 (1.1-1.8); ALBUMIN 3.8 g/dL (3.0-4.8); ALT/SGPT 32 U/L (7-56); AST/SGOT 25 U/L (17-59); BLOOD UREA NITROGEN 17 mg/dL (7-21); CALCIUM 8.5 mg/dL (8.4-10.5); GFR AFRICAN-AMERICAN > 60; GFR NON-AFRICAN AMERICAN > 60
[2017-08-29 06:29] VITALS: BP 117/75; PULSE 75; RESP 18; TEMP 98.1; O2SAT 97
--- NOTE | 2017-08-29 08:48 | RAD ---
HISTORY: Chest pain COMPARISON: 08/24/2017 FINDINGS: LUNGS: No active pulmonary disease. PLEURA: No significant pleural effusion identified, no pneumothorax apparent. CARDIOVASCULAR: No radiographic findings to suggest acute or significant cardiovascular disease. Position/ configuration of pacemaker device: Satisfactory. OSSEOUS STRUCTURES: No significant abnormalities. VISUALIZED UPPER ABDOMEN: Normal. OTHER FINDINGS: None. IMPRESSION: No active disease. No significant interval change compared to the prior examination(s).
--- NOTE | 2017-08-29 20:35 | CARD ---
APPROVED REPORT EKG Measurement Heart [id number] <Conclusion> Normal sinus rhythm Possible Left atrial enlargement Right bundle branch block Anterolateral infarct, age undetermined Abnormal ECG
== END 2017-08-29 06:33 | disposition home or self-care (01) ==
LOC: ED 21:53
DX: R07.9 Chest pain, unspecified (principal); I10 Essential (primary) hypertension; I25.10 Atherosclerotic heart disease of native coronary artery without angina pectoris; I50.9 Heart failure, unspecified; Z87.891 Personal history of nicotine dependence; J44.9 Chronic obstructive pulmonary disease, unspecified; Z95.0 Presence of cardiac pacemaker; I25.2 Old myocardial infarction

== ENCOUNTER 2017-08-30 00:48 | Emergency (ER) | payer MEDICAID ==
[2017-08-30 00:48] VITALS: BMI 24.0
[2017-08-30 01:11] VITALS: O2SAT 100
--- NOTE | 2017-08-30 01:26 | ED PDOC ---
Arrival/HPI - General Chief Complaint: Chest Pain Time Seen by Provider: 08/30/17 00:51 Historian: Patient - History of Present Illness Narrative History of Present Illness (Text): 08/30/17 01:26 47 year old male with a past medical history of CAD w/ Stent placement, ID, CHF , pacemaker/Defibrillator, and asthma/COPD presenting to the emergency room complaining of left sided ribcage pain. Patient has been seen and discharged yesterday for chest pain and multiple time before. He was recently discharged three days ago after being admitted for chest pain and dizziness. 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 Patient lives in [place] and works at [employer]. His PCP is in [facility] and will be off for another week. Patient does not know what else to do, so he came in for evaluation. Patient reports he is allergic to Nitroglycerin, but was never reported in his past visits. He said he can not do anything due to the pain and took two aspirins with no relief. Patient reports vomiting a few times, but denies any fever, chills, shortness of breath, nausea, diarrhea, urinary symptoms, back pain, neck pain, headache, dizziness, or any other complaints. Symptom Onset: Gradual Symptom Course: Unchanged Activities at Onset: Light Context: Home Past Medical History - Provider Review Nursing Documentation Reviewed: Yes - Infectious Disease Hx of Infectious Diseases: None - Cardiac Hx Cardiac Disorders: Yes Hx Hypertension: Yes - Pulmonary Hx Respiratory Disorders: No - Neurological Hx Neurological Disorder: No - HEENT Hx HEENT Disorder: No - Renal Hx Renal Disorder: No - Endocrine/Metabolic Hx Endocrine Disorders: No - Hematological/Oncological Hx Blood Disorders: No Hx AIDS: No - Integumentary Hx Dermatological Disorder: No - Musculoskeletal/Rheumatological Hx Musculoskeletal Disorders: No Hx Falls: No - Gastrointestinal Hx Gastrointestinal Disorders: No Hx Vomiting: No - Genitourinary/Gynecological Hx Genitourinary Disorders: No - Psychiatric Hx Psychophysiologic Disorder: No Hx Substance Use: No - Surgical History Other/Comment: Left Lung Biopsy, Cardiac Stent x1 - Anesthesia Hx Anesthesia: Yes Hx Anesthesia Reactions: No Hx Malignant Hyperthermia: No Family/Social History - Physician Review Nursing Documentation Reviewed: Yes Family/Social History: No Known Family HX Smoking Status: Former Smoker Hx Alcohol Use: No Hx Substance Use: No Allergies/Home Meds Allergies/Adverse Reactions: Allergies pantoprazole sodium [From Protonix] Allergy (Verified 08/30/17 00:58) RASH pantoprazole [From Protonix] Adverse Reaction (Unknown, Verified 08/21/17 23:31) SWELLING Home Medications: Home Meds Medication Instructions Recorded Confirmed Aspirin [Aspirin Chewable] 81 mg PO DAILY 08/21/17 08/30/17 Atorvastatin [Lipitor] 80 mg PO DAILY 08/21/17 08/30/17 Clopidogrel [Plavix] 75 mg PO DAILY 08/21/17 08/30/17 Review of Systems - Physician Review All systems were reviewed & negative as marked: Yes - Review of Systems Constitutional: absent: Fevers, Other (Chills) Respiratory: absent: SOB Cardiovascular: Chest Pain Gastrointestinal: Vomiting. absent: Diarrhea, Nausea Genitourinary Male: absent: Dysuria, Frequency, Hematuria Musculoskeletal: absent: Back Pain, Neck Pain Neurological: absent: Headache, Dizziness Physical Exam Vital Signs Reviewed: Yes Vital Signs Temp Pulse Resp BP Pulse Ox 08/30/17 01:10 98.0 F 103 H 18 126/82 100 Temperature: Afebrile Blood Pressure: Normal Pulse: Regular Respiratory Rate: Normal Appearance: Positive for: Well-Appearing, Non-Toxic, Comfortable Pain Distress: None Mental Status: Positive for: Alert and Oriented X 3 - Systems Exam Head: Present: Atraumatic, Normocephalic Pupils: Present: PERRL Extroacular Muscles: Present: EOMI Conjunctiva: Present: Normal Mouth: Present: Moist Mucous Membranes Neck: Present: Normal Range of Motion Respiratory/Chest: Present: Clear to Auscultation, Good Air Exchange. No: Respiratory Distress, Accessory Muscle Use, Tender to Palpation, Other (Cannot reproduce the pain) Cardiovascular: Present: Regular Rate and Rhythm, Normal S1, S2. No: Murmurs Abdomen: No: Tenderness, Distention, Peritoneal Signs Back: Present: Normal Inspection Upper Extremity: Present: Normal Inspection. No: Cyanosis, Edema Lower Extremity: Present: Normal Inspection. No: Edema Neurological: Present: GCS=15, CN II-XII Intact, Speech Normal Skin: Present: Warm, Dry, Normal Color. No: Rashes Psychiatric: Present: Alert, Oriented x 3, Normal Insight, Normal Concentration Medical Decision Making ED Course and Treatment: 08/30/17 01:26 Impression: 47 year old male presents complaining of left side ribcage pain associated with episodes of vomiting. Patient has been discharged yesterday for similar complaints and discharged two days ago after being admitted for chest pain and dizziness. Plan: -- Labs -- EKG -- Chest X-ray -- Reassess and disposition Prior Visits: Notes and results from previous visits were reviewed. Patient was last seen in the emergency department on 08/28/17 presents complaining of chest pain. Patient was discharged. Progress Notes: 08/30/17 03:02 CXR Impression: As read by me, NAD EKG shows NSR at 96 BPM with RBBB. Interpreted by me. 08/30/17 03:35 On re-evaluation, patient feels better and is in no acute distress. I have discussed the results and plan with the patient, who expresses understanding. Patient in agreement with plan to be discharged home. Patient is stable for discharge. Patient was instructed to follow up with physician or return if symptoms worsen or new concerning symptoms arise. - Lab Interpretations Lab Results: 08/30/17 01:41 08/30/17 01:41 Lab Results 08/30/17 01:41: Alcohol, Quantitative 61 H 08/30/17 01:41: Sodium 142, Potassium 3.9, Chloride 105, Carbon Dioxide 23, Anion Gap 18, BUN 12, Creatinine 0.8, Est GFR ( Amer) > 60, Est GFR (Non- Af Amer) > 60, Random Glucose 101, Calcium 8.8, Total Bilirubin 0.4, AST 34, ALT 28, Alkaline Phosphatase 72, Lactate Dehydrogenase 498, Total Creatine Kinase 67, Troponin I < 0.01, NT-Pro-B Natriuret Pep 122, Total Protein 6.9, Albumin 4.0, Globulin 2.8, Albumin/Globulin Ratio 1.4, Lipase 86 08/30/17 01:41: PT 11.9, INR 1.04 08/30/17 01:41: WBC 6.9, RBC 4.42, Hgb 10.6 L, Hct 32.8 L, MCV 74.2 L, MCH 24.0 L, MCHC 32.3, RDW 15.0 H, Plt Count 226, MPV 9.5, Gran % 67.1, Lymph % (Auto) 19.6 L, [place] % (Auto) 6.8 H, Eos % (Auto) 6.4 H, Baso % (Auto) 0.1, Gran # 4.61 , Lymph # (Auto) 1.4, [place] # (Auto) 0.5, Eos # (Auto) 0.4, Baso # (Auto) 0.01 I have reviewed the lab results: Yes - RAD Interpretation Radiology Orders: 08/30/17 01:12 CHEST PORTABLE [RAD] Stat - EKG Interpretation Interpreted by ED Physician: Yes Type: 12 lead EKG - Scribe Statement The provider has reviewed the documentation as recorded by the Scribe Pina Steen Provider Scribe Attestation: All medical record entries made by the Scribe were at my direction and personally dictated by me. I have reviewed the chart and agree that the record accurately reflects my personal performance of the history, physical exam, medical decision making, and the department course for this patient. I have also personally directed, reviewed, and agree with the discharge instructions and disposition. Disposition/Present on Arrival - Present on Arrival Any Indicators Present on Arrival: No History of DVT/PE: Yes History of Uncontrolled Diabetes: No Urinary Catheter: No History of Decub. Ulcer: No History Surgical Site Infection Following: None - Disposition Have Diagnosis and Disposition been Completed?: Yes Diagnosis: Atypical chest pain, Anxiety, Alcohol use Disposition: HOME/ ROUTINE Disposition Time: 03:30 Patient Plan: Discharge Patient Problems: Current Active Problems Problem Status Onset Atypical chest pain Acute Anxiety Acute Alcohol use Acute Condition: GOOD Discharge Instructions (ExitCare): Alcohol Use - When Is Drinking a Problem?, Anxiety, Adult (DC), Chest Pain (ED) Additional Instructions: Mr Mcrae - All of your tests are good. Don't drink any more alcohol. Follow up with your regular doctors. Return to us if any problems. Darrin- Dr. Sameer Oreilly Forms: [employer] (Turkmen)
[2017-08-30 02:23] LABS: BASO # 0.01 K/mm3 (0.0-2.0); BASO % 0.1 % (0.0-3.0); EOS # 0.4 (0.0-0.7); EOS % 6.4 % (1.5-5.0); GRAN # 4.61 (1.4-6.5); GRAN % 67.1 % (50.0-68.0); HEMOGLOBIN 10.6 g/dL (14.0-18.0); LYMPH # 1.4 (1.2-3.4); LYMPH % 19.6 % (22.0-35.0); MEAN CELL VOLUME 74.2 fl (80.0-105.0); MEAN CORPUSCULAR HGB CONC 32.3 g/dl (31.0-37.0); MEAN PLATELET VOLUME 9.5 fl (7.0-11.0); MONO # 0.5 (0.1-0.6); MONO % 6.8 % (1.0-6.0); RBC 4.42 10^6/uL (3.5-6.1); WHITE BLOOD COUNT 6.9 10^3/ul (4.5-11.0)
[2017-08-30 02:26] LABS: ALB/GLOB RATIO 1.4 (1.1-1.8); ALT/SGPT 28 U/L (7-56); AST/SGOT 34 U/L (17-59); BLOOD UREA NITROGEN 12 mg/dL (7-21); CALCIUM 8.8 mg/dL (8.4-10.5); GFR AFRICAN-AMERICAN > 60; GFR NON-AFRICAN AMERICAN > 60; LIPASE 86 U/L (23-300)
[2017-08-30 02:27] LABS: PROTHROMBIN TIME 11.9 SECONDS (9.4-12.5)
[2017-08-30 02:28] LABS: INR 1.04 (0.93-1.08)
[2017-08-30 02:31] LABS: B-TYPE NATRIURETIC PEPTIDE 122 pg/mL (0-450); TROPONIN I < 0.01 ng/mL
[2017-08-30 03:53] VITALS: BP 115/74; PULSE 80; RESP 17; TEMP 98.1
--- NOTE | 2017-08-30 08:35 | RAD ---
HISTORY: Chest pain COMPARISON: 08/28/2017. FINDINGS: LUNGS: The lungs are well inflated and clear. PLEURA: No significant pleural effusion identified, no pneumothorax apparent. CARDIOVASCULAR: The heart is normal in size. There is stable position of left-sided AICD. OSSEOUS STRUCTURES: No significant abnormalities. VISUALIZED UPPER ABDOMEN: Normal. OTHER FINDINGS: None. IMPRESSION: No active pulmonary disease.
--- NOTE | 2017-08-30 18:54 | CARD ---
APPROVED REPORT EKG Measurement Heart [id number] <Conclusion> Normal sinus rhythm Possible Left atrial enlargement Right bundle branch block Anterolateral infarct, age undetermined Abnormal ECG
== END 2017-08-30 03:53 | disposition home or self-care (01) ==
LOC: ED 00:48
DX: F41.9 Anxiety disorder, unspecified (principal); R07.89 Other chest pain; Z72.89 Other problems related to lifestyle; I25.10 Atherosclerotic heart disease of native coronary artery without angina pectoris; J44.9 Chronic obstructive pulmonary disease, unspecified; I10 Essential (primary) hypertension; Z87.891 Personal history of nicotine dependence; I50.9 Heart failure, unspecified

== ENCOUNTER 2017-09-11 09:29 | Emergency (ER) | payer MEDICAID ==
[2017-09-11 09:30] VITALS: BMI 24.0
--- NOTE | 2017-09-11 09:55 | ED PDOC ---
Arrival/HPI - General Chief Complaint: Chest Pain Time Seen by Provider: 09/11/17 09:37 Historian: Patient - History of Present Illness Narrative History of Present Illness (Text): 09/11/17 09:58 47 year old male with a past medical history of CAD w/ Stent placement, VT, CHF , pacemaker/Defibrillator, and asthma/COPD presents to the ED with left side chest pain upon waking this morning along with a headache and dizziness. Pt states that he took his medication this morning and has not missed doses in the past. Pt says he doesn't have a lens polisher however he is scheduled for a follow up appt at [facility] in [facility] in December for the defibrillator check. Patient denies any fever, chills, shortness of breath, nausea, vomiting, diarrhea, urinary symptoms, back pain, neck pain, or any other complaints. Time/Duration: 1-3 hours Symptom Onset: Sudden Symptom Course: Unchanged Quality: Tightness Severity Level: 3 Activities at Onset: Rest Context: Home Past Medical History - Provider Review Nursing Documentation Reviewed: Yes - Travel History Have you recently traveled outside [place] w/in the past 3 mons?: No - Infectious Disease Hx of Infectious Diseases: None - Cardiac Hx Cardiac Disorders: Yes Hx VT: Yes Hx Hypertension: Yes - Pulmonary Hx Respiratory Disorders: No - Neurological Hx Neurological Disorder: No - HEENT Hx HEENT Disorder: No - Renal Hx Renal Disorder: No - Endocrine/Metabolic Hx Endocrine Disorders: No - Hematological/Oncological Hx Blood Disorders: No Hx AIDS: No - Integumentary Hx Dermatological Disorder: No - Musculoskeletal/Rheumatological Hx Musculoskeletal Disorders: No Hx Falls: No - Gastrointestinal Hx Gastrointestinal Disorders: No Hx Vomiting: No - Genitourinary/Gynecological Hx Genitourinary Disorders: No - Psychiatric Hx Psychophysiologic Disorder: No Hx Substance Use: No - Surgical History Other/Comment: Left Lung Biopsy, Cardiac Stent x1 - Anesthesia Hx Anesthesia: Yes Hx Anesthesia Reactions: No Hx Malignant Hyperthermia: No Family/Social History - Physician Review Nursing Documentation Reviewed: Yes Family/Social History: Unknown Family HX Smoking Status: Lives with smokers Hx Alcohol Use: Yes Frequency of alcohol use: Socially (last ETOH drink last week) Hx Substance Use: No Allergies/Home Meds Allergies/Adverse Reactions: Allergies pantoprazole sodium [From Protonix] Allergy (Verified 08/30/17 00:58) RASH pantoprazole [From Protonix] Adverse Reaction (Unknown, Verified 08/21/17 23:31) SWELLING Home Medications: Home Meds Medication Instructions Recorded Confirmed Aspirin [Aspirin Chewable] 81 mg PO DAILY 08/21/17 09/11/17 Atorvastatin [Lipitor] 80 mg PO DAILY 08/21/17 09/11/17 Clopidogrel [Plavix] 75 mg PO DAILY 08/21/17 09/11/17 Furosemide [Lasix] 40 mg PO DAILY 09/11/17 09/11/17 Review of Systems - Review of Systems Systems not reviewed;Unavailable: Unstable Vital Signs Constitutional: Normal Eyes: Normal ENT: Normal Respiratory: SOB, Wheezing Cardiovascular: Chest Pain. absent: Palpitations, Edema, Calf Pain Gastrointestinal: Normal Genitourinary Male: Normal Musculoskeletal: Normal Skin: Normal Neurological: Headache, Dizziness Endocrine: Normal Hemo/Lymphatic: Normal Psychiatric: Normal Physical Exam Vital Signs Reviewed: Yes Vital Signs Temp Pulse Resp BP Pulse Ox 09/11/17 13:29 98.8 F 75 19 126/72 99 09/11/17 12:41 98 F 97 H 19 120/63 99 09/11/17 12:05 95 H 09/11/17 10:17 100 H 21 131/53 L 100 09/11/17 09:39 98.3 F 115 H 19 131/53 L 97 Temperature: Afebrile Blood Pressure: Normal Pulse: Tachycardic Respiratory Rate: Normal Appearance: Positive for: Well-Appearing, Non-Toxic, Comfortable Pain Distress: Mild Mental Status: Positive for: Alert and Oriented X 3 - Systems Exam Head: Present: Atraumatic, Normocephalic Pupils: Present: PERRL Extroacular Muscles: Present: EOMI Conjunctiva: Present: Normal Mouth: Present: Moist Mucous Membranes Neck: Present: Normal Range of Motion Respiratory/Chest: Present: Clear to Auscultation, Good Air Exchange, Wheezes. No: Respiratory Distress, Accessory Muscle Use, Decreased Breath Sounds Cardiovascular: Present: Regular Rate and Rhythm, Normal S1, S2, Peripheal Pulses Present, Tachycardic. No: Murmurs Abdomen: Present: Normal Bowel Sounds. No: Tenderness, Distention, Peritoneal Signs Back: Present: Normal Inspection. No: CVA Tenderness Upper Extremity: Present: Normal Inspection, NORMAL PULSES, Neurovascularly Intact, Capillary Refill < 2s. No: Cyanosis, Edema Lower Extremity: Present: Normal Inspection, NORMAL PULSES, Neurovascularly Intact, Capillary Refill < 2 s. No: Edema, CALF TENDERNESS, Bethany's Sign, Tenderness, Swelling Neurological: Present: GCS=15, CN II-XII Intact, Speech Normal, Motor Func Grossly Intact, Normal Sensory Function Skin: Present: Warm, Dry, Normal Color. No: Rashes Lymphatic: No: Cervical Adenopathy, Axillary Adenopathy, Inguinal Adenopathy, Other Psychiatric: Present: Alert, Oriented x 3, Normal Insight, Normal Concentration , Normal Affect Medical Decision Making ED Course and Treatment: 09/11/17 10:05 Impression 47 year old male with a past medical history of CAD w/ Stent placement, VT, CHF , pacemaker/Defibrillator, and asthma/COPD presents to the ED with left side chest pain upon waking this morning along with a headache and dizziness. On exam, pt is tachy, mild wheezing on expiration in bilateral lung bailon, abdomen soft and non tender, point tenderness and hypertonicity of the upper trapezius musculature Plan Labs CXR, ECG assess and dispo Progress note Labs reveal no change from last visit-->wnl at baseline; Neg troponins O2 sat 100% on N; continues to have wheezing and crackles-->DuoNeb Tx given 09/11/17 11:33 Tylenol 325 mg PO STAT given for MITCHELL 09/11/17 12:26 crackles and wheezing continue after DuoNeb; will evaluate O2 sat on RA Pt states that he typically has exacerbation every spring and summer; no respiratory distress;pt is comfortable while waiting 09/11/17 12:28 09/11/17 13:06 Patient has [id number] of 100% on RA and VSS ready to d/c and advised pt to use Symbicort, take lasix and spironolactone as discussed in the management of CHF 09/11/17 22:52 - Lab Interpretations Lab Results: 09/11/17 09:50 09/11/17 09:50 Lab Results 09/11/17 10:30: Urine Color Light yellow, Urine Appearance Clear, Urine pH 6.0, Ur Specific [place] 1.015, Urine Protein 30 H, Urine Glucose (UA) Negative, Urine Ketones Negative, Urine Blood Negative, Urine Nitrate Negative, Urine Bilirubin Negative, Urine Urobilinogen 0.2, Ur Leukocyte Esterase Negative, Urine RBC Negative, Urine WBC 0 - 2, Ur Epithelial Cells 0 - 2, Urine Bacteria Few 09/11/17 09:50: Sodium 141, Potassium 4.3, Chloride 102, Carbon Dioxide 24, Anion Gap 19, BUN 17, Creatinine 0.7 L, Est GFR ( Amer) > 60, Est GFR ( Non-Af Amer) > 60, Random Glucose 116 H, Calcium 8.9, Magnesium 1.8, Total Bilirubin 0.6, AST 36, ALT 28, Alkaline Phosphatase 91, Lactate Dehydrogenase 610, Total Creatine Kinase 204, Troponin I < 0.01, NT-Pro-B Natriuret Pep 151, Total Protein 7.4, Albumin 4.3, Globulin 3.1, Albumin/Globulin Ratio 1.4 09/11/17 09:50: PT 11.9, INR 1.03, APTT 27.8 09/11/17 09:50: WBC 7.1, RBC 4.60, Hgb 11.2 L, Hct 34.0 L, MCV 73.9 L, MCH 24.3 L, MCHC 32.9, RDW 15.5 H, Plt Count 275, MPV 9.1, Gran % 69.2 H, Lymph % (Auto) 15.8 L, [place] % (Auto) 9.5 H, Eos % (Auto) 5.4 H, Baso % (Auto) 0.1, Gran # 4.90 , Lymph # (Auto) 1.1 L, [place] # (Auto) 0.7 H, Eos # (Auto) 0.4, Baso # (Auto) 0.01 - RAD Interpretation Narrative RAD Interpretations (Text): 09/12/17 20:25 No active disease appreciated on CXR Radiology Orders: 09/11/17 09:45 CHEST PORTABLE [RAD] Stat - EKG Interpretation Interpreted by ED Physician: Yes (Sinus Tachycardia, RBBB, Rate 117) - Medication Orders Current Medication Orders: Discontinued Medications Acetaminophen (Tylenol 325mg Tab) 325 mg PO STAT STA Stop: 09/11/17 11:56 Last Admin: 09/11/17 12:01 Dose: Albuterol/Ipratropium (Duoneb 3 Mg/0.5 Mg (3 Ml) Ud) 3 ml IH STAT STA Stop: 09/11/17 11:33 Last Admin: 09/11/17 11:45 Dose: 3 ml Disposition/Present on Arrival - Present on Arrival Any Indicators Present on Arrival: Yes History of DVT/PE: Yes History of Uncontrolled Diabetes: No Urinary Catheter: No History of Decub. Ulcer: No History Surgical Site Infection Following: None - Disposition Have Diagnosis and Disposition been Completed?: Yes Diagnosis: Asthma, Congestive heart failure, Chest pain, musculoskeletal, Headache, tension-type Disposition: HOME/ ROUTINE Disposition Time: 13:07 Patient Plan: Discharge Condition: STABLE Discharge Instructions (ExitCare): Tension Headache, Medicines for Asthma, Heart Failure (ED), Chest Pain (ED) Additional Instructions: Fernanda, thank you for letting us take care of you today. Your provider was JULISSA Lopez. You were treated for Asthma and Headache. The emergency medical care you received today was directed at your acute symptoms. If you were prescribed any medication, please fill it and take as directed. It may take several days for your symptoms to resolve. Return to the Emergency Department if your symptoms worsen, do not improve, or if you have any other problems. Please find a regular Primary Doctor to receive on-going care Please contact your doctor or call one of the physicians/clinics you have been referred to that are listed on the Patient Visit Information form that is included in your discharge packet. Bring any paperwork you were given at discharge with you along with any medications you are taking to your follow up visit. Our treatment cannot replace ongoing medical care by a primary care provider (PCP) outside of the emergency department. Thank you for allowing the [facility] team to be part of your care today. If you had an X-Ray or CT scan: A Radiologist will review the ED reading if any change in treatment is needed we will contact you. If you had a blood, urine, or wound culture: It will take several days for the results, if any change in treatment is needed we will contact you. Prescriptions: Acetaminophen [Tylenol 325mg tab] 325 mg PO Q6 #20 tab Referrals: [facility] [Outside] - Follow up with primary Forms: [employer] (Faroese)
[2017-09-11 10:03] LABS: BASO # 0.01 K/mm3 (0.0-2.0); BASO % 0.1 % (0.0-3.0); EOS # 0.4 (0.0-0.7); EOS % 5.4 % (1.5-5.0); GRAN # 4.9 (1.4-6.5); GRAN % 69.2 % (50.0-68.0); HEMOGLOBIN 11.2 g/dL (14.0-18.0); LYMPH # 1.1 (1.2-3.4); LYMPH % 15.8 % (22.0-35.0); MEAN CELL VOLUME 73.9 fl (80.0-105.0); MEAN CORPUSCULAR HEMOGLOBIN 24.3 pg (25.0-35.0); MEAN CORPUSCULAR HGB CONC 32.9 g/dl (31.0-37.0); MEAN PLATELET VOLUME 9.1 fl (7.0-11.0); MONO # 0.7 (0.1-0.6); MONO % 9.5 % (1.0-6.0); RBC 4.6 10^6/uL (3.5-6.1); RED CELL DISTRIBUTION WIDTH 15.5 % (11.5-14.5); WHITE BLOOD COUNT 7.1 10^3/ul (4.5-11.0)
[2017-09-11 10:13] LABS: INR 1.03 (0.93-1.08); PARTIAL THROMBOPLASTIN TIME 27.8 Seconds (25.1-36.5); PROTHROMBIN TIME 11.9 SECONDS (9.4-12.5)
[2017-09-11 10:40] LABS: B-TYPE NATRIURETIC PEPTIDE 151 pg/mL (0-450); TROPONIN I < 0.01 ng/mL
[2017-09-11 10:41] LABS: ALB/GLOB RATIO 1.4 (1.1-1.8); ALBUMIN 4.3 g/dL (3.0-4.8); ALT/SGPT 28 U/L (7-56); AST/SGOT 36 U/L (17-59); BLOOD UREA NITROGEN 17 mg/dL (7-21); CALCIUM 8.9 mg/dL (8.4-10.5); GFR AFRICAN-AMERICAN > 60; GFR NON-AFRICAN AMERICAN > 60
[2017-09-11 10:47] LABS: URINE BILIRUBIN NEGATIVE (NEGATIVE); URINE BLOOD NEGATIVE (NEGATIVE); URINE GLUCOSE (UA) NEGATIVE (NEGATIVE); URINE LEUKOCYTE ESTERASE NEGATIVE Leu/uL (NEGATIVE); URINE PROTEIN 30 mg/dL (<30 mg/dL); URINE UROBILINOGEN 0.2 E.U./dL (<1 E.U./dL)
[2017-09-11 10:50] LABS: URINE APPEARANCE CLEAR (CLEAR); URINE COLOR LIGHT YELLOW (YELLOW)
[2017-09-11 10:54] LABS: URINE BACTERIA FEW (NEG); URINE EPITHELIAL CELLS 0 - 2 /hpf (0-5); URINE RBC NEGATIVE /hpf (0-2); URINE WBC 0 - 2 /hpf (0-6)
[2017-09-11] MEDS ORDERED: Albuterol-Ipratrop 3 mg / 0.5 (3 ml) UD IH STA (11:32)
--- NOTE | 2017-09-11 11:48 | RAD ---
HISTORY: Chest pain COMPARISON: Comparison chest 08/30/2017 FINDINGS: LUNGS: No active pulmonary disease. PLEURA: No significant pleural effusion identified, no pneumothorax apparent. CARDIOVASCULAR: Heart appears borderline/ mildly enlarged. No change single lead pacemaker/defibrillator OSSEOUS STRUCTURES: No significant abnormalities. VISUALIZED UPPER ABDOMEN: Normal. OTHER FINDINGS: None. IMPRESSION: No active disease.
[2017-09-11 12:44] VITALS: RESP 19; O2SAT 99
[2017-09-11 13:32] VITALS: BP 126/72; PULSE 75; TEMP 98.8
--- NOTE | 2017-09-12 08:27 | CARD ---
APPROVED REPORT EKG Measurement Heart [id number] <Conclusion> Sinus tachycardia Possible Left atrial enlargement Right bundle branch block Possible LAHB Anterolateral infarct, age undetermined NSSTW changes No change
== END 2017-09-11 13:29 | disposition home or self-care (01) ==
LOC: ED 09:29
DX: I50.9 Heart failure, unspecified (principal); G44.209 Tension-type headache, unspecified, not intractable; J45.909 Unspecified asthma, uncomplicated; I25.10 Atherosclerotic heart disease of native coronary artery without angina pectoris; I25.2 Old myocardial infarction